=== PATIENT | male | born 1930 | race Caucasian/White ===

== ENCOUNTER 2017-04-25 11:21 | Inpatient (IN) | payer OTHER ==
[~2017-04-25] VITALS: Ht 170.2 cm; Wt 72.7 kg
[2017-04-25] MEDS ORDERED: LISINOPRIL2.5 M1 PO (11:42)
[2017-04-25] MEDS ORDERED: SIMVASTATIN40 M1 PO (11:43)
[2017-04-25] MEDS ORDERED: METFORMIN HCL500 M3 PO (11:43)
--- NOTE | 2017-04-25 11:57 | ED GENERAL ADULT ---
History of Present Illness General Chief Complaint: General Adult Stated Complaint: BIBA WITH ABDOMNAIL PAIN Source: patient Exam Limitations: no limitations Allergies Uncoded Allergies: Allergy Other N Med Allergies N Reconcile Medications Lisinopril 2.5 MG TABLET 2.5 MG PO DAILY HYPERTENSION (Reported) Metformin HCl 500 MG TABLET 500 MG PO BID DIABETES (Reported) Simvastatin (Simvastatin*) 40 MG TABLET 40 MG PO DAILY CHOLESTEROL (Reported) Triage Note: C/O EPIGASTRIC PAIN THAT RADIATED TO HIS BACK LAST NIGHT THAT NEVER IMPROVED. HAD NEAR SYNCOPAL EPISODE AT HOME IN WHICH HE FELL SUSTAINING AN ABRAISION TO HIS LEFT ARM. DENIES HITTING HIS HEAD ANY LOC. NO ASA OR BLOOD THINNERS TAKEN. DENIES PAIN ON ARRIVAL. STATES SHE WOULD LIKE TO GET A CXR B/C SHE THINKS HE MAY HAVE PNEUMONIA D/T CONTINUOUS COUGH. NO COUGH NOTED ON ARRIVAL. NAD Triage Nurses Notes Reviewed? yes Onset: Gradual Duration: day(s): (2) Timing: recent history Injury Environment: home Severity: moderate No Modifying Factors: none HPI: Patient is an 86-year-old male with history of diabetes, chronic chest pain syndrome, aortic stenosis and hyperlipidemia presenting to the emergency department with chief complaint of fall this morning. Patient presented is walking and slipped on a wet floor and his was unable to get him up. Patient does report that he hit the back of his head. No LOC. Denies blood per use. Patient also reports that over the past 2 days he's been having an intermittently productive cough of yellow sputum with centralized chest tightness. Patient reports that at the time the chest pain did radiate to the back. Chest pain lasted a few hours last night and then returned again this morning for "a little while". Denies any current chest pain or back pain. Denies any upper extremity or lower extremity pain. Denies any palpitations shortness of breath fevers or chills. No recent travel or sick contacts. Denies taking anything at home to help with coughing. denies any syncopal event. Denies any lightheadedness or feeling weak prior to slipping on the floor and following. They called their airplane pilot this morning who is supposed to see him this afternoon and arrange for a chest x-ray to be done prior to the appointment but they did not want to wait until this afternoon inserted they decided come into the emergencY for evaluation. (BRIDGER FLORES) Vital Signs & Intake/Output Vital Signs & Intake/Output Vital Signs Date Time Temp Pulse Resp B/P B/P Pulse O2 O2 Flow FiO2 Mean Ox Delivery Rate 04/25 1415 82 104/65 04/25 1329 81 18 109/61 94 Room Air 04/25 1304 94 Room Air 04/25 1254 94 04/25 1140 99.2 83 20 105/67 93 Room Air Past History Travel History Traveled to [place] past 21 day No Medical History Any Pertinent Medical History? see below for history Neurological: NONE EENT: NONE Cardiovascular: CHF, hypertension, CHOLESTEROL Endocrine: diabetes Surgical History Surgical History: non-contributory Psychosocial History What is your primary language Vincentian Tobacco Use: Never used Family History Hx Contributory? No (BRIDGER FLORES) Review of Systems Review of Systems Constitutional: Reports: no symptoms. Comments Review of systems: See HPI, All other systems negative. Constitutional, no chills fever or weight loss HEENT: No visual changes no sore throat Cardiovascular: No palpitation , orthopnea or ankle swelling Skin, no jaundice no rashes Respiratory: No dyspnea OR hemoptysis GI: No nausea no vomiting : No dysuria No hematuria Muscle skeletal: no neck pain, Neurologic: No numbness no confusion, no headache Psych: No stress anxiety or depression,. Heme/endocrine: No bruising no bleeding no polyuria or polydipsia Immunology: No splenectomy or history of AIDS (BRIDGER FLORES) Physical Exam Physical Exam General Appearance: well developed/nourished, no apparent distress, alert, awake , comfortable Comments: Well-developed well-nourished person in no acute distress HEENT: Strabismus noted. Extraocular motion intact, no nystagmus. Pupils equally round and reactive to light and accommodation. Nose is atraumatic. External auditory canal and Tympanic membranes clear. Pharynx normal. No swelling or edema. Neck: Supple, no lymphadenopathy, normal range of motion without pain or tenderness Back: Nontender, no CVA tenderness. Full range of motion Cardiovascular: Regular rate and rhythms, normal JVP. Positive murmur to auscultation consistent with aortic stenosis. Respiratory: Chest nontender. No respiratory distress.breath sounds clear to auscultation bilaterally Abdomen: Soft, nontender nondistended, no appreciable organomegaly. Normal bowel sounds. No ascites, no rebound or guarding. Rectal: Nontender, no external hemorrhoids, brown stool guaiac-negative. Extremity: No edema, no calf tenderness to palpation, normal and equal pulses. Able to perform straight leg raise bilaterally. No pain to palpation over bilateral hips, femurs or lower aspect of the lower extremities. Full range of motion of bilateral ankles and feet. No ecchymosis or signs of trauma noted on the lower extremities. Full range of motion of left upper extremity, no pain to palpation over the lateral or medial epicondyle and the left upper extremity. 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 No ecchymosis erythema or edema noted. No pain to palpation over bilateral shoulders. Muscular strength is 5 out of 5 in lower extremities and left upper extremity. Neuro: Alert oriented x3, motor sensory normal, cranial nerves II through XII grossly intact. Cerebellar testing is unremarkable. Skin: No appreciable rash on exposed skin, skin is warm and dry. Patient does have several dry plaque-like lesions noted on his face, slightly hyperpigmented. Ranging from 2 mm to 1 cm. Psych: Mood and affect is normal, memory and judgment is normal. Core Measures ACS in differential dx? Yes CVA/TIA Diagnosis: No Severe Sepsis Present: No Septic Shock Present: No (DANIEL SANCHEZ,BRIDGER) Progress Differential Diagnoses I considered the following diagnoses in my evaluation of the patient: Mechanical fall, minor head injury, intracranial hemorrhage, near syncope, ACS, electrolyte abnormality, cardiac arrhythmia, cardiac ischemia Diagnostic Imaging: Viewed by Me: Radiology Read, CT Scan. Discussed w/RAD: Radiology Read, CT Scan. Radiology Impression: PATIENT: COREY MCGARRY PRESENT AGE: 86 PATIENT ACCOUNT NO: [id number] : 30 LOCATION: [facility] ORDERING PHYSICIAN: BRIDGER SANCHEZ SERVICE DATE: 04/25/17 EXAM TYPE: RAD - XRY-CHEST XRAY, PA AND LATERAL EXAMINATION: XR CHEST CLINICAL INFORMATION: Chest pain. COMPARISON: None TECHNIQUE: 2 views of the chest were obtained. FINDINGS: Low lung volumes. Minimal bibasilar atelectasis. No pleural effusion or edema. No pneumothorax. The cardiomediastinal silhouette is within normal limits of size for this technique. Aortic calcifications noted. Severe degenerative changes at the left glenohumeral joint. IMPRESSION: Hypoexpanded lungs with bibasilar atelectasis. The cardiac silhouette is normal in size for this technique. DICTATED BY: DONNELL BROWN MD Initial ED EK SINUS RHYTHM, ST DEPRESSION AND NEGATIVE T WAVES Comments: On arrival patient distress, not currently reporting any chest pain. Neurologically intact. No reproducible pain on exam. Patient does not take any aspirin daily. Non-any anticoagulation. EKG does show ST depressions. Unable to obtain previous EKG at this time. We will contact patient's airplane pilot. 04/25/2017 1:26:55 PM family updated on all labs and positive troponin as well as imaging results. Patient family were informed that he likely had a heart attack. Page spelled out to cardiology. Patient will be admitted. Given 4 baby aspirin. Pending auscultation with airplane pilot to see if he would like to heparinize this patient. Patient also given metoprolol to help lower heart rate. (DANIEL SANCHEZ,BRIDGER) Plan of Care: Orders Procedure Date/time Status PARTIAL THROMBOPLASTIN TIME 04/25 2020 Active Patient Data 04/25 1523 Active Add-on Test (ER Only) 04/25 1321 Active B-TYPE NATRIURETIC PEP (BNP) 04/25 1226 Complete MISTAKE 04/25 1158 Active Telemetry/Assistant Restaurant General Manager 04/25 1158 Active URINALYSIS 04/25 1158 Active TROPONIN LEVEL 04/25 1158 Complete PARTIAL THROMBOPLASTIN TIME 04/25 1158 Complete PROTHROMBIN TIME 04/25 1158 Complete LIPASE 04/25 1158 Complete COMPREHENSIVE METABOLIC PANEL 04/25 1158 Complete CBC WITHOUT DIFFERENTIAL 04/25 1158 Complete EKG 04/25 1158 Active Current Medications Sig/Max Start time Last Medication Dose Stop Time Status Admin Heparin Sodium 25,000 UNIT Q24H 04/25 1400 UNVr 04/25 (Porcine) 1421 (Heparin) Sodium Chloride 500 ML Laboratory Tests 04/25/17 1226: Anion Gap 11, Estimated GFR 57 L, BUN/Creatinine Ratio 21.7, Glucose 121 H, Calcium 9.3, Total Bilirubin 1.0, AST 72 H, ALT 25, Alkaline Phosphatase 57, Troponin I 13.60 *H, Znd-Q-Jqyoxbhmjpy Pept 68104 H, Total Protein 6.7, Albumin 4.1, Globulin 2.6, Albumin/Globulin Ratio 1.6, Lipase 72, PT 12.2, INR 1.16, APTT 33, CBC w Diff NO MAN DIFF REQ, RBC 4.58 L, MCV 86.4, MCH 29.4, RDW 14.5, MPV 7.6, Gran % 91.6 H, Lymphocytes % 3.9 L, Monocytes % 4.4, Eosinophils % 0.1, Basophils % 0 L, Absolute Granulocytes 8.6 H, Absolute Lymphocytes 0.4 L , Absolute Monocytes 0.4, Absolute Eosinophils 0, Absolute Basophils 0, PUBS MCHC 34.0 Comments: D/W DR DUPONT WHO RECOMMENDS HEPARIN AND ADMISSION. Patient has known severe/ critical aortic stenosis but has declined surgery for years. 04/25/2017 2:29:25 PM patient's case discussed with Dr. Boyce who felt the patient should be admitted to the intensive care unit to the intensivists service. I attempted to contact Dr. Dave to see if he felt ICU admission was appropriate. In the meantime Dr. Boyce did speak with Dr. Dave and it was felt appropriate for ICU admission. I've discussed the patient's case with Dr. Shell who feels that given that this is an isolated cardiac issue that Dr. Dave should take the admission. (JAROCHO PICKERING,MICHAEL Najera) Departure Departure Time of Disposition: 1353 Condition: Stable Referrals: URIEL PICKERING,ROBINSON Montoya (PCP/Family) Departure Forms: Customer Survey General Discharge Information Admission Note Spoke With: DAGOBERTO PICKERING,PEÑA Montoya (BRIDGER FLORES) Departure Disposition: STILL A PATIENT Clinical Impression Primary Impression: Acute coronary syndrome Admission Note Documentation of Exam: Documentation of any treatments & extenuating circumstances including Concerns Regarding Discharge (functional status, medication knowledge or non-compliance, living conditions, etc.) that warrant an admission rather than observation: Patient presents after an episode of chest pain yesterday with an elevated troponin and a history of critical aortic stenosis. This places the patient at high risk of worsening cardiac function, congestive heart failure, dysrhythmias, syncope, hypotension and mortality. He should be hospitalized and placed on a continuous athletic monitor and have serial troponins and EKGs performed. He should be heparinized for the possibility of acute coronary ischemia. Vital signs should be monitored. Cardiology consultation should be obtained and consideration of aortic repair considered. I do not feel this patient is a good candidate for outpatient management as the exertion of outpatient treatment could potentially worsen his acute coronary syndrome. In addition he should have continuous cardiac monitoring for the possibility of associated dysrhythmia. Given his advanced age and medical comorbidities I feel his treatment will be prolonged and complicated. He will require a multiple day hospitalization. PA/REGISTRATION SCHEDULING SPECIALIST Co-Sign Statement Statement: ED Attending supervision documentation- [X] I saw and evaluated the patient. I have also reviewed all the pertinent lab results and diagnostic results. I agree with the findings and the plan of care as documented in the PA's/REGISTRATION SCHEDULING SPECIALIST's documentation. [] I have reviewed the ED Record and agree with the PA's/REGISTRATION SCHEDULING SPECIALIST's documentation. [] Additions or exceptions (if any) to the PAs/REGISTRATION SCHEDULING SPECIALIST's note and plan are summarized below: [] (JAROCHO PICKERING,MICHAEL Najera) Critical Care Note Critical Care Note Critical Care Time: 30-74 min (BRIDGER FLORES)
[2017-04-25 12:33] LABS: ABSOLUTE BASOPHIL COUNT 0 /CUMM (0.0-0.2); ABSOLUTE EOSINOPHIL COUNT 0 /CUMM (0.0-0.7); ABSOLUTE GRANULOCYTE CT 8.6 /CUMM (1.4-6.5); ABSOLUTE LYMPH COUNT 0.4 /CUMM (1.2-3.4); ABSOLUTE MONOCYTE COUNT 0.4 /CUMM (0.10-0.60); BASOPHIL % 0 % (0.0-2.0); EOSINOPHIL % 0.1 % (0-5); HEMATOCRIT 39.5 % (42-52); MEAN CORPUSCULAR HGB 29.4 PG (27.0-31.0); MEAN CORPUSCULAR VOLUME 86.4 FL (80.0-94.0); MEAN PLATELET VOLUME 7.6 FL (7.4-10.4); PLATELET COUNT 252 /CUMM (130-400); RBC DISTRIBUTION WIDTH 14.5 % (11.5-14.5); RED BLOOD CELL CT 4.58 /CUMM (4.70-6.10); WHITE BLOOD CELL COUNT 9.4 /CUMM (4.8-10.8)
--- NOTE | 2017-04-25 12:34 | RADIOLOGY REPORT ---
EXAMINATION: XR CHEST CLINICAL INFORMATION: Chest pain. COMPARISON: None TECHNIQUE: 2 views of the chest were obtained. FINDINGS: Low lung volumes. Minimal bibasilar atelectasis. No pleural effusion or edema. No pneumothorax. The cardiomediastinal silhouette is within normal limits of size for this technique. Aortic calcifications noted. Severe degenerative changes at the left glenohumeral joint. IMPRESSION: Hypoexpanded lungs with bibasilar atelectasis. The cardiac silhouette is normal in size for this technique.
[2017-04-25 13:00] LABS: GRANULOCYTE % 91.6 % (42.2-75.2)
[2017-04-25 13:04] LABS: PT 12.2 SEC (9.4-12.5); PTT 33 SEC (25-37)
--- NOTE | 2017-04-25 13:15 | CT SCAN REPORT ---
EXAMINATION: CT HEAD WITHOUT CONTRAST CLINICAL INFORMATION: Head strike. Evaluate for acute intracranial hemorrhage. COMPARISON: No relevant prior imaging. TECHNIQUE: Contiguous axial imaging was performed from the skull base to vertex without intravenous administration of contrast. DLP: 631.5 mGy-cm FINDINGS: There is no acute intracranial hemorrhage or abnormal extra axial collection. No intracranial mass effect or midline shift. Lateral and third ventricles are proportionate to the subarachnoid spaces. No hydrocephalus. Marquez-white matter differentiation is grossly preserved and there is no evidence of acute territorial infarct. The calvarium and skull base are intact. Mastoid air cells and middle ear cavities are well aerated. Visualized paranasal sinuses are well aerated. IMPRESSION: Unremarkable CT scan of the head. No evidence of acute intracranial hemorrhage.
--- NOTE | 2017-04-25 16:58 | History & Physical ---
See Addendum General Information and HPI Source of Information: patient, family Exam Limitations: no limitations History of Present Illness: He is 86-year-old man with past medical history of aortic stenosis, hypertension , hyperlipidemia, type 2 diabetes presented to ER with complaint of epigastric pain and nausea starting yesterday. According to patient he had same pain day before yesterday but it lasted only for an hour. Yesterday lasted for almost all day. Epigastric pain was continuous, sharp, radiating to back. Also reports dizzy and lightheaded. He denies any chest pain, palpitations, SOB, Orthopnea, PND and diaphoresis. No vomiting, diarrhea or constipation. No urinary changes. This morning when he went to bathroom, slipped and fell down. He also hit his head. Patient does not remember fully about his symptoms before fall. He denies losing consciousness, headache, vision changes, weakness or numbness of any part of his body. According to he is baseline wobbly but does not use any assistance for walking. also reports that patient has poor appetite and has lost weight progressively. Per patient was also coughing yesterday and complaining of sore throat. Denies any fever or chills. Cough is nonproductive. Patient lives with his . Has 2 daughters. Nonsmoker. Denies drinking alcohol or use of illicit drugs. He is retired. 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 Allergies/Medications Allergies: Uncoded Allergies: Allergy Other N Med Allergies N Home Med list Glipizide (Glipizide ER) 2.5 MG TAB.ER.24 1 TAB PO DAILY DM (Reported) Lisinopril 2.5 MG TABLET 1 TAB PO DAILY HYPERTENSION (Reported) Metformin HCl 500 MG TABLET 500 MG PO BID DIABETES (Reported) Simvastatin (Simvastatin*) 40 MG TABLET 40 MG PO DAILY CHOLESTEROL (Reported) Compliance With Home Meds: GOOD Past History Travel History Traveled to [place] past 21 day No Medical History Neurological: NONE EENT: NONE Cardiovascular: hypertension, hyperlipidemia, Aortic stenosis Endocrine: diabetes Surgical History Surgical History: cataract, 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 Psychosocial History Where do you live? Home Who Do You Live With? 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 Exam & Diagnostic Data Last 24 Hrs of Vital Signs/I&O Vital Signs Date Time Temp Pulse Resp B/P B/P Pulse O2 O2 Flow FiO2 Mean Ox Delivery Rate 04/25 1415 82 104/65 04/25 1329 81 18 109/61 94 Room Air 04/25 1304 94 Room Air 04/25 1254 94 04/25 1140 99.2 83 20 105/67 93 Room Air Intake & Output 04/25 1600 04/25 0800 04/25 0000 Intake Total Output Total Balance Patient 160 lb Weight Weight Estimated Measurement Method Physical Exam General Appearance Alert, Oriented X3, Cooperative, No Acute Distress Skin small abrasion on left elbow HEENT dry mucous membranes Neck No JVD Cardiovascular Regular Rate, systolic murmur Lungs Clear to Auscultation Abdomen Normal Bowel Sounds, Soft, No Tenderness Neurological Strength at 5/5 X4 Ext, Sensation Intact Extremities No Edema, amputated right arm Last 24 Hrs of Labs/Ed: Laboratory Tests 04/25/17 1226: Anion Gap 11, Estimated GFR 57 L, BUN/Creatinine Ratio 21.7, Glucose 121 H, Calcium 9.3, Total Bilirubin 1.0, AST 72 H, ALT 25, Alkaline Phosphatase 57, Troponin I 13.60 *H, Xke-I-Oskzqsrjedy Pept 76972 H, Total Protein 6.7, Albumin 4.1, Globulin 2.6, Albumin/Globulin Ratio 1.6, Lipase 72, PT 12.2, INR 1.16, APTT 33, CBC w Diff NO MAN DIFF REQ, RBC 4.58 L, MCV 86.4, MCH 29.4, RDW 14.5, MPV 7.6, Gran % 91.6 H, Lymphocytes % 3.9 L, Monocytes % 4.4, Eosinophils % 0.1, Basophils % 0 L, Absolute Granulocytes 8.6 H, Absolute Lymphocytes 0.4 L , Absolute Monocytes 0.4, Absolute Eosinophils 0, Absolute Basophils 0, PUBS MCHC 34.0 Diagnostic Data EKG Results NSR T wave inversions in almost all leads No ST elevations LVH No previous EKG to compare CXR Results Hypoexpanded lungs with bibasilar atelectasis. Other Results Head CT: No evidence of acute intracranial hemorrhage. Assessment/Plan Assessment: He is 86-year-old man with past medical history of aortic stenosis, hypertension , hyperlipidemia, type 2 diabetes. ED course: Upon arrival to ED his temperature was 99.2, pulse 83, respiratory rate 20, blood pressure 105/67 and oxygen saturation 93% on room air. Labs including CBC and BP unremarkable. Troponins 13.60, proBNP 69576. In ER he was given nebulization treatment, metoprolol 12.5 mg by mouth 1 and he was started on heparin drip after giving bolus. Patient is going to be admitted in ICU for possible NSTEMI. LOUIE score is 5. PLAN * Close ICU monitoring * Watch for arrhythmias * Continue IV heparin drip * Serial EKGs and troponins * Echocardiogram * We'll start patient on aspirin * Continue statin * Holding his home medications including metformin, glipizide and lisinopril * Accu-Cheks before each meal and at bedtime * NovoLog insulin sliding scale * We'll keep patient nothing by mouth after midnight tonight for possible cardiac cath tomorrow * Will follow further cardiac recommendations * Mild pain pathway * Heart healthy diet * DVT prophylaxis * Full code As Ranked By This Provider Problem List: 1. NSTEMI (non-ST elevated myocardial infarction) Core Measures/Miscellaneous Acute Coronary Syndrome ACS Diagnosis: Yes ASA W/I 24hr of admit Yes Beta-Kendra W/I 24hrs Yes Currently on Statin Yes Cerebrovascular Accident CVA/TIA Diagnosis: No Congestive Heart Failure CHF Diagnosis: No VTE (View Protocol) VTE Risk Factors: Acute medical illness, Age > 40 No [facility] VTE prophylaxis d/t: No contraindications No VTE Pharm Prophylaxis d/t: No contraindications VTE Diagnosis: No VTE Type: NONE VTE Confirmed by (Test): NONE Sepsis (View Protocol) Severe Sepsis Present: No Septic Shock Septic Shock Present: No Miscellaneous Documentation Attending Case Discussed With: Dr. Ramires Primary Care Physician: URIEL PICKERING,ROBINSON Montoya Patient sees these Specialists Dr. Deyvi Nuñez Level of Patient Care: Critical Care (CRI) Consults Needed: Consulting Specialty: Cardiology
[2017-04-25] MEDS ORDERED: GLIPIZIDE ER2.5 M1 PO (17:01)
[2017-04-25 18:00] VITALS: BP 102/60
[2017-04-25 20:55] LABS: PTT 83 SEC (25-37)
[2017-04-26] VITALS: BP 108/60
[2017-04-26 02:56] LABS: ABSOLUTE BASOPHIL COUNT 0 /CUMM (0.0-0.2); ABSOLUTE EOSINOPHIL COUNT 0.1 /CUMM (0.0-0.7); ABSOLUTE GRANULOCYTE CT 4.1 /CUMM (1.4-6.5); ABSOLUTE LYMPH COUNT 0.7 /CUMM (1.2-3.4); ABSOLUTE MONOCYTE COUNT 0.6 /CUMM (0.10-0.60); BASOPHIL % 0.5 % (0.0-2.0); EOSINOPHIL % 1.2 % (0-5); GRANULOCYTE % 74.9 % (42.2-75.2); MEAN CORPUSCULAR HGB 29.5 PG (27.0-31.0); MEAN CORPUSCULAR HGB CONC 33.9 G/DL (33.0-37.0); PLATELET COUNT 214 /CUMM (130-400); RBC DISTRIBUTION WIDTH 14.4 % (11.5-14.5); RED BLOOD CELL CT 3.95 /CUMM (4.70-6.10); WHITE BLOOD CELL COUNT 5.5 /CUMM (4.8-10.8)
[2017-04-26 02:57] LABS: HEMATOCRIT 34.4 % (42-52)
--- NOTE | 2017-04-26 07:18 | PN- Resident CRCU ---
Subjective HPI/CRCU Issues: I saw the pt today at bed side,he was lying flat on bed. He says, he is comfortable at rest, denies chest pain, palpitations, dyspnea, orthopnea , headache. He slept well and anxious about the cath procedure. Objective Vital Signs & I&O Last 8 Hrs of Vitals and I&O: Vital Signs Date Time Temp Pulse Resp B/P B/P Pulse O2 O2 Flow FiO2 Mean Ox Delivery Rate 04/26 0800 97 Nasal 2.0L Cannula 04/26 0800 97.8 52 18 108/70 97 Nasal 2.0L Cannula 04/26 0400 98 Nasal 2.0L Cannula 04/26 0000 97 Nasal 2.0L Cannula 04/26 0000 96.0 53 22 108/60 97 Nasal 2.0L Cannula 04/25 1800 98.0 58 20 102/60 96 Room Air 04/25 1745 60 18 100/54 98 Room Air 04/25 1415 82 104/65 04/25 1329 81 18 109/61 94 Room Air 04/25 1304 94 Room Air 04/25 1254 94 Exam General Appearance: well developed/nourished, no apparent distress, alert, awake , anxious, thin, rt below elbow amputation +. Head: normal appearance Neck: normal inspection, supple, full range of motion Respiratory: normal breath sounds, chest non-tender, no respiratory distress, quiet respiration Cardiovascular: regular rate/rhythm Gastrointestinal: normal bowel sounds, soft Extremities: normal inspection Skin: intact, normal color Back: normal inspection Nutrition Nutrition: NPO Current Medications: Current Medications Sig/Max Start time Last Medication Dose Route Stop Time Status Admin Acetaminophen 650 MG Q6P PRN 04/25 1700 AC PO Aspirin 81 MG DAILY 04/26 1000 AC 04/26 PO 0934 Aspirin 0 .STK-MED ONE 04/25 1324 DC PO Atorvastatin Calcium 40 MG 1700 04/26 1700 AC PO Dextrose/Sodium 1,000 ML Q20H 04/26 0600 AC 04/26 Chloride IV 04/27 0159 0619 Heparin Sodium 0 .STK-MED ONE 04/25 1414 DC (Porcine) .ROUTE Heparin Sodium 4,000 UNIT ONCE ONE 04/25 1400 DC 04/25 (Porcine) IV 04/25 1401 1420 Heparin Sodium 25,000 UNIT Q24H 04/25 1400 AC 04/25 (Porcine) IV 1421 Sodium Chloride 500 ML Insulin Aspart 0 TIDAC 04/26 0800 CAN SC Insulin Human Regular 0 Q6 04/26 0600 AC SC Metoprolol Tartrate 0 .STK-MED ONE 04/25 1414 DC PO Metoprolol Tartrate 12.5 MG ONCE ONE 04/25 1330 DC 04/25 PO 04/25 1331 1415 Multivitamins 1 TAB DAILY 04/26 1000 AC 04/26 PO 0934 Sodium Chloride 500 ML BOLUS ONE 04/25 2200 DC 04/26 IV 04/25 2259 0043 CXR Findings: Hypoexpanded lungs with bibasilar atelectasis. The cardiac silhouette is normal in size for this technique. CT Scan Findings: CT HEAD 04/25/[address] scan of the head. No evidence of acute intracranial hemorrhage. ECHO Findings: 04/26/17 Technically difficult study. Definity contrast given. Left ventricular cavity size normal. Left ventricular wall thickness mildly increased. No obvious regional wall motion abnormalities. Left ventricular ejection fraction is estimated at > 55 %. Right ventricle not well visualized, grossly normal. Mild left atrial dilatation. Mitral valve not well visualized. Probably moderate mitral stenosis. Aortic valve not well visualized. Critical aortic stenosis (mean gradient 84 mmHg, KYA 0.36 cm2 by continuity). Unable to estimate the right ventricular systolic pressure. Impression/Plan Impression/Problem List Impression: He is 86-year-old man with past medical history of aortic stenosis, hypertension , hyperlipidemia, type 2 diabetes, came with h/o fall and chest pain with T wave inversion admitted in ICU for close monitoring yesterday. Pt planned for cath today at [facility]. Plan: NSTEMI * NPO * ON HEPARIN, ASPIRIN ,STATIN * AVoid b blockers. * echo * cardiology f/u * his glycemic meds with held * novolog and accu checks. Problem List: 1. NSTEMI (non-ST elevated myocardial infarction) Pain Ratin Tomorrow's Labs & Rationales: none Plan DVT/Prophylaxis: heparin, alps Code Status: Full Code
[2017-04-26 08:00] VITALS: BP 108/70
--- NOTE | 2017-04-26 08:52 | Discharge Summary ---
Visit Information Visit Dates Admission Date: 04/25/17 Discharge Date: 04/26/17 Hospital Course Course Attending Physician: DAGOBERTO PICKERING,PEÑA Montoya Primary Care Physician: URIEL PICKERING,ROBINSON Montoya Consulting Request: Consulting Specialty: Cardiology Hospital Course: 86-year-old man past medical history of aortic stenosis, hypertension, hyperlipidemia, and sjt-kmeskwk-vdvxlqsem diabetes mellitus seen for evaluation of epigastric pain with associated nausea. Epigastric pain was described as sharp, continuous, radiating to the back with associated dizziness/lightheadedness without any specific chest pain, palpitations, shortness breath, or diaphoresis. Review of systems was otherwise negative upon initial evaluation. Patient admits to a similar episode occurring the day prior that resolved after an hour. Morning of admission patient admits to sustaining an unwitnessed mechanical fall where he slipped and fell down during ambulation to the bathroom, he does not recall this event details of the event. He does however denied losing consciousness, vision changes, or bowel/bladder incontinence. ED course: -Vitals: Temp 99.2, HR 81-83, RR 18-20, BP 104-109/61-67, O2 93-94% on room air -Significant labs: WBC 9.4, Hgb/HCT 13.5/39.5, PLT 252, serum chemistries WNL, BUN/creatinine 26/1.2, AST/ALT 72/25, troponin 13.60, BNP 14,200 INR 1.16 -Studies: * Chest w-qjb-xtykxkrfozgf lungs with bibasilar atelectasis * CT head without IV contrast-no acute intracranial pathology/hemorrhage * EKG-NSR with T-wave inversions and ST depression in V3-V6, LVH, unchanged from previous -Interventions: * Heparin GGT * Metoprolol 12.5mg * ASA 324mg * Atorvastatin 40mg Problem list: -NSTEMI -History of aortic stenosis -Hypertension -Hyperlipidemia -Qtc-pasgztw-vqpugqvxz diabetes mellitus Hospital Course: Given patient's history of present illness and elevated troponin with EKG changes suggestive of myocardial ischemia patient was continued on heparin drip and admitted to the ICU for further evaluation and cardiology consultation. Troponin/EKG were trended for 3 sets (13.60, 27.90, 19.70) EKG demonstrating a new changes. She was seen and examined by director of reimbursement Guero Ramires MD whom felt patient would benefit from cardiac catheterization. She is to be transferred to [facility] under the care of Dr. Valerio for further evaluation. Patient was continued on aspirin, heparin ggt, and atorvastatin upon transfer. Allergies: Uncoded Allergies: Allergy Other N Med Allergies N Significant Procedures: SERVICE DATE: 04/25/17 EXAM TYPE: RAD - XRY-CHEST XRAY, PA AND LATERAL IMPRESSION: Hypoexpanded lungs with bibasilar atelectasis. The cardiac silhouette is normal in size for this technique. SERVICE DATE: 04/25/17 EXAM TYPE: CAT - CT HEAD WO IV CONTRAST IMPRESSION: Unremarkable CT scan of the head. No evidence of acute intracranial hemorrhage. Disposition Summary Disposition Principal Diagnosis: NSTEMI Severe aortic stenosis Additional Diagnosis: As above Discharge Disposition: other general hospital Discharge Instructions General Discharge Information Code Status: Full Code Patient's Diet: NPO for procedure Patient's Activity: Best rest until reassessed Follow-Up Instructions/Appts: Transfer to [facility] Medications at Discharge Discharge Medications: Continue taking these medications: Lisinopril (Lisinopril) 2.5 MG TABLET 1 Tablet ORAL DAILY Qty = 30 Metformin HCl (Metformin HCl) 500 MG TABLET 500 Milligram ORAL TWICE DAILY Qty = 180 Simvastatin (Simvastatin*) 40 MG TABLET 40 Milligram ORAL DAILY Qty = 90 Glipizide (Glipizide ER) 2.5 MG TAB.ER.24 1 Tablet ORAL DAILY Start taking the following new medications: Aspirin (Aspirin*) 81 MG TAB.CHEW 81 Milligram ORAL DAILY Qty = 30 No Refills Heparin (Heparin-1/2NS 25,000 Units/500) 25,000 UNIT/500 ML (50 UNIT/ML) IV.SOLN 1 Bag INTRAVEN DAILY Qty = 1 No Refills Copies To: URIEL PICKERING,ROBINSON Montoya; DAGOBERTO PICKERING,PEÑA Montoya Attending MD Review Statement Documenting Attending: MARIANO PICKERING,GUERO
[2017-04-26] MEDS ORDERED: ASPIRIN81 M4 PO (09:26)
[2017-04-26] MEDS ORDERED: HEPARIN-1/25000 UNI1 IV (09:26)
--- NOTE | 2017-04-26 09:27 | Patient Discharge Instructions ---
Discharge Instructions General Discharge Information Special Instructions: Follow up with your instrument mechanic weapons system after discharge. Acute Coronary Syndrome Inclusion Criteria At DC or during hospital stay patient has or had the following: ACS DIAGNOSIS Yes Discharge Core Measures Meds if any: Prescribed or Continued at Discharge ZAKI/ARB if EF <40% No Aspirin Yes Beta-Kendra Yes Statin Yes Meds if any: NOT Prescribed or Continued at Discharge Congestive Heart Failure Inclusion Criteria At DC or during hospital stay patient has or had the following: CHF DIAGNOSIS No Discharge Core Measures Meds if any: Prescribed or Continued at Discharge Meds if any: NOT Prescribed or Continued at Discharge Cerebrovascular accident Inclusion Criteria At DC or during hospital stay patient has or had the following: CVA/TIA Diagnosis No Discharge Core Measures Meds if any: Prescribed or Continued at Discharge Meds if any: NOT Prescribed or Continued at Discharge Venous thromboembolism Inclusion Criteria VTE Diagnosis No VTE Type NONE VTE Confirmed by (Test) NONE Discharge Core Measures - Per Current guidelines, there needs to be overlap - treatment for the first 5 days of Warfarin therapy. - If discharged on Warfarin prior to 5 days of - overlap therapy, the patient will need to be - assessed for post discharge needs including - *Post discharge parental anticoagulation - *Warfarin and/or parental anticoagulation education - *Follow up date to check INR post discharge At least 5 days overlap therapy as Inpatient No Meds if any: Prescribed or Continued at Discharge Note: Overlap Therapy is Warfarin and Anticoagulant Meds if any: NOT Prescribed or Continued at Discharge
[2017-04-26 10:05] LABS: PTT > 120 SEC (25-37)
--- NOTE | 2017-04-26 10:57 | ECHOCARDIOGRAM REPORT ---
COREY MCGARRY Age: 86 : 1930 Gender: M Exam Date: 04/25/2017 18:45 Exam Location: [facility] Ht (in): 66 Wt (lb): 160 BSA: 1.85 BP: 100 / 54 Ordering Physician: MEDHAT STARKEY MD Referring Physician: Guero Ramires M.D. Technologist: Donna Castillo RDCS Room Number: 102 Indications: VALVULAR DISEASE Rhythm: Technical Quality: Technically difficult study FINDINGS Left Ventricle Left ventricular cavity size normal. Left ventricular wall thickness mildly increased. No obvious regional wall motion abnormalities. Left ventricular ejection fraction is estimated at > 55 %. Right Ventricle Right ventricle not well visualized, grossly normal. Right Atrium Normal right atrial size. Left Atrium Mild left atrial dilatation. Mitral Valve Mitral valve not well visualized. Probably moderate mitral stenosis. Mild mitral regurgitation. Aortic Valve Aortic valve not well visualized. Critical aortic stenosis (mean gradient 84 mmHg, KYA 0.36 cm2 by continuity). Tricuspid Valve Tricuspid valve not well visualized, grossly normal. Trace tricuspid regurgitation. Unable to estimate the right ventricular systolic pressure. Pulmonic Valve Pulmonic valve not well visualized. Pericardium No pericardial effusion. Great Vessels Normal size aortic root. CONCLUSIONS Technically difficult study. Definity contrast given. Left ventricular cavity size normal. Left ventricular wall thickness mildly increased. No obvious regional wall motion abnormalities. Left ventricular ejection fraction is estimated at > 55 %. Right ventricle not well visualized, grossly normal. Mild left atrial dilatation. Mitral valve not well visualized. Probably moderate mitral stenosis. Aortic valve not well visualized. Critical aortic stenosis (mean gradient 84 mmHg, KYA 0.36 cm2 by continuity). Unable to estimate the right ventricular systolic pressure. Guero Ramires M.D. (Electronically Signed) Final Date: 26 April 2017 10:57 MEASUREMENTS (Male / Female) Normal Values 2D ECHO LV Diastolic Diameter PLAX 5.5 cm 4.2 - 5.9 / 3.9 - 5.3 cm LV Systolic Diameter PLAX 3.7 cm 2.1 - 4.0 cm LV Fractional Shortening PLAX 32.7 % 25 - 46 % LV Ejection Fraction 2D Teich 60.6 % IVS Diastolic Thickness 1.2 cm LVPW Diastolic Thickness 1.2 cm LV Relative Wall Thickness 0.4 RV Internal Dim ED PLAX 3.1 cm 1.9 - 3.8 cm LVOT Diameter 1.8 cm Aortic Root Diameter 3.1 cm LA Systolic Diameter LX 5.2 cm 3.0 - 4.0 / 2.7 - 3.8 cm LA Volume 49.0 cm 18 - 58 / 22 - 52 cm DOPPLER AV Peak Velocity 560.0 cm/s AV Peak Gradient 125.4 mmHg AV Mean Velocity 442.0 cm/s AV Mean Gradient 84.0 mmHg AV Velocity Time Integral 161.0 cm LVOT Peak Velocity 79.0 cm/s LVOT Peak Gradient 2.5 mmHg LVOT Mean Velocity 59.3 cm/s LVOT Mean Gradient 2.0 mmHg LVOT Velocity Time Integral 25.8 cm LVOT Stroke Volume 65.7 cm AV Area Cont Eq vti 0.4 cm AV Area Cont Eq pk 0.4 cm MV Peak Velocity 156.0 cm/s MV Peak Gradient 9.7 mmHg MV Mean Velocity 72.0 cm/s MV Mean Gradient 3.0 mmHg Mitral E Point Velocity 106.0 cm/s Mitral A Point Velocity 136.0 cm/s Mitral E to A Ratio 0.8 MV PHT Velocity 122.0 cm/s MV Deceleration [place] 293.0 cm/s MV Pressure Half Time 124.9 ms MV Area PHT 1.8 cm MV Deceleration Time 451.0 ms LV E' Lateral Velocity 4.0 cm/s Mitral E to LV E' Lateral Ratio 26.5 LV E' Septal Velocity 3.0 cm/s Mitral E to LV E' Septal Ratio 35.1
--- NOTE | 2017-04-26 11:07 | Admission Certification ---
Admission Certification Certification Statement - As attending physician, I certify that at the time of - admission, based on clinical presentation, severity of - symptoms, need for further diagnostic testing and - therapeutic interventions, and risk of adverse outcomes - without in-hospital treatment, in my clinical assessment, - this patient requires an acute hospital stay for a minimum - of two nights or longer. I have also considered psychsocial - factors such as support system, advanced age, financial - issues, cognitive issues, and failed out-patient treatments, - past re-admission history, safety of patient, and lack of - compliance as applicable. Specific rationale supporting this admission is: NSTEMI, plan for cath, severe , IV Heparin gtt
--- NOTE | 2017-04-26 11:19 | PN- Att Addend ---
Attending Addendum Attending Brief Note I have personally seen and examined this patient. I have personally reviewed all relevant imaging and laboratory data. I have discussed the case with the care team. 1. Non-ST elevation myocardial infarction 2. Critical aortic stenosis 3. Hypertension 4. Hyperlipidemia 5. Diabetes Patient shows evidence of non-ST elevation myocardial infarction with peak troponins at 27.9. Currently hemodynamically stable. Extensive conversation had with the patient and his regarding various risks/benefits/treatment alternatives. At this time they wish to proceed with cardiac catheterization and evaluation for valvular replacement. Echocardiogram shows a grossly normal ejection fraction with critical aortic stenosis and probably moderate mitral stenosis. The patient is currently hemodynamically stable for transfer for cardiac catheterization today. Calin Ramires MD FACC
== END 2017-04-26 12:12 | disposition short-term general hospital (02) | DRG 282 ==
LOC: ERH 11:21 → CRI 15:36 → ERHI 15:36 → CRI 15:36 → ENRESERV 17:18 → ENTRNSPT 17:57 → EDTRNSPTSTS 18:13 → CRI 18:28 → CMPTRNSPT 18:33 → CRI 19:02
PROVIDERS: Internal Medicine; Physician Assistant; ADMIT Nuclear Medicine Nuclear Cardiology
DX: I21.4 Non-ST elevation (NSTEMI) myocardial infarction (principal); E11.9 Type 2 diabetes mellitus without complications; I35.0 Nonrheumatic aortic (valve) stenosis; I10 Essential (primary) hypertension; E78.5 Hyperlipidemia, unspecified; I08.0 Rheumatic disorders of both mitral and aortic valves; Z79.84 Long term (current) use of oral hypoglycemic drugs; R01.1 Cardiac murmur, unspecified
CPT/HCPCS: CCU; 36415; 82436; 93005; 93010; C8929; J1644; J3490; Q9957

== ENCOUNTER 2018-02-24 10:40 | Inpatient (IN) | payer OTHER ==
[~2018-02-24] VITALS: Ht 170.2 cm; Wt 58.3 kg
[~2018-02-24 10:40] MED LIST: ASPIRIN81 M4 PO; GLIPIZIDE ER2.5 M1 PO; HEPARIN-1/25000 UNI1 IV; LISINOPRIL2.5 M1 PO; METFORMIN HCL500 M3 PO; SIMVASTATIN40 M1 PO
[2018-02-24] MEDS ORDERED: CLOPIDOGREL75 M1 PO (11:04)
[2018-02-24] MEDS ORDERED: PRAVASTATIN SOD80 M2 PO (11:04)
[2018-02-24] MEDS ORDERED: VITAMIN D31000 UNI2 PO (11:05)
--- NOTE | 2018-02-24 11:26 | ED GENERAL ADULT ---
History of Present Illness General Chief Complaint: Altered Mental Status Stated Complaint: BIBA HEMATURIA Source: family Exam Limitations: unable to give history, not alert/orientated, clinical condition, confusion, dementia Vital Signs & Intake/Output Vital Signs & Intake/Output Vital Signs Date Time Temp Pulse Resp B/P B/P Pulse O2 O2 Flow FiO2 Mean Ox Delivery Rate 02/24 1458 49 16 174/74 100 Room Air 02/24 1315 98.6 51 16 173/77 96 02/24 1054 96.1 53 16 162/72 95 Room Air Allergies Coded Allergies: No Known Allergies (02/24/18) Reconcile Medications Aspirin (Aspirin*) 81 MG TAB.CHEW 81 MG PO DAILY HEART Cholecalciferol (Vitamin D3) 1,000 UNIT TABLET 1 TAB PO DAILY VITAMIN SUPPORT (Reported) Clopidogrel Bisulfate (Clopidogrel) 75 MG TABLET 1 TAB PO DAILY BLOOD THINNER (Reported) Metformin HCl 500 MG TABLET 500 MG PO BID DIABETES (Reported) Pravastatin Sodium 80 MG TABLET 1 TAB PO DAILY CHOLESTEROL (Reported) Triage Note: 87 Y/O MALE BIBA FROM HOME FOR EVAL OF HEMATURIA, REPORTED BY AIDE AT HOME THIS MORNING. PT ARRIVES ALERT AND ORIENTED X 3, SPEAKING CLEARLY WITH NO DISTRESS NOTED. PT STATES "DID SOMETHING HAPPEN TO ME? I FEEL GOOD". PT DENIES ALL COMPLAINTS. EMS REPORTS AID CHANGED PT THIS AM AND NOTICED BLOOD IN URINE. PT REPORTS URINATING "IN A LITTLE BIT" OVER THE LAST FEW DAYS. DENIES PAIN. DENIES CHANGES IN APPETITE. AWAITING EVAL Triage Nurses Notes Reviewed? yes HPI: The patient is an 87-year-old male with past medical history significant for an CT in April 2017 which was followed by stenting, valve replacement, necessity for PICC line, subsequent sepsis without known source, and a stroke with resulting left-sided hemiparalysis and currently a poor level of function, who is brought in today by his for hematuria. They have a home health aide who noted blood in his briefs this morning. The patient is unable to communicate any concerns himself, making HPI and review of systems Limited. Past History Travel History Traveled to [place] past 21 day No Medical History Any Pertinent Medical History? 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 Hx Contributory? Yes Review of Systems Review of Systems Constitutional: Reports: see HPI. Comments Other than the features mentioned in history of present illness above, a detailed review of systems was not possible secondary to the patient's confusion and dementia Physical Exam Physical Exam General Appearance: no apparent distress Comments: HEENT: Inspection of the head reveals a normocephalic cranium with no signs of trauma. Ophtho: Eyes are held in a closed position, no obvious acute abnormality. The sclera are noninjected, and there is no obvious discharge. Neck: The trachea is midline, there is no obvious asymmetry or mass over the thyroid, and there is no wincing on palpation of the midline cervical spine. Respiratory: The lungs are clear and equal to auscultation bilaterally without wheezes, rales, or rhonchi. The patient exhibits no signs of labored breathing. Cardiac: Regular rhythm and non-tachycardic without appreciable murmurs on auscultation. No obvious JVD. GI: Examination of the abdomen reveals no significant wincing on deep palpation. : Hematuria. Nursing was unable to pass a straight catheter so Cristobal catheterization was required which resulted in a very scant amount of blood, no visible urine. Neuro: Focused neurologic examination was attempted, but secondary to the patient's confusion and dementia, it was extremely limited. Features that were obtainable included baseline left-sided hemiparesis. Behavioral: Altered. Dermatologic: Dermatologic examination reveals no diffuse rashes or exanthems, no petechiae, no ecchymoses, and no other signs of erythema or infection. Core Measures ACS in differential dx? Yes CVA/TIA Diagnosis: Yes Sepsis Present: No Sepsis Focused Exam Completed? Yes Progress Differential Diagnoses I considered the following diagnoses in my evaluation of the patient: Ureterolithiasis, nephrolithiasis, kidney failure with acute tubular necrosis, hemorrhagic cystitis, bladder mass, idiopathic hematuria Plan of Care: Orders Procedure Date/time Status Regular Diet 02/25 B Active EKG 02/24 1555 Active Cristobal, Insertion/Removal/Asses 02/24 112 Active CULTURE,URINE 02/24 112 Active URINALYSIS 02/24 1122 Complete COMPREHENSIVE METABOLIC PANEL 02/24 1122 Complete CBC WITHOUT DIFFERENTIAL 02/24 1122 Complete Laboratory Tests 02/24/18 1133: Anion Gap 11, Estimated GFR 57 L, BUN/Creatinine Ratio 27.5 H, Glucose 96, Calcium 9.7, Total Bilirubin 0.6, AST 35, ALT 41, Alkaline Phosphatase 61, Total Protein 7.0, Albumin 3.9, Globulin 3.1, Albumin/Globulin Ratio 1.3, CBC w Diff NO MAN DIFF REQ, RBC 4.64 L, MCV 85.3, MCH 28.5, MCHC 33.4, RDW 14.7 H, MPV 7.7, Gran % 70.6, Lymphocytes % 15.1 L, Monocytes % 6.9, Eosinophils % 6.7 H, Basophils % 0.7, Absolute Granulocytes 3.7, Absolute Lymphocytes 0.8 L, Absolute Monocytes 0.4, Absolute Eosinophils 0.4, Absolute Basophils 0, Urinalysis LIGHT H, Urine Color BLDY H, Urine Clarity CLDY H, Urine pH 5.5, Ur Specific [place] 1.025, Urine Protein 100 H, Urine Ketones TRACE H, Urine Nitrite POS H, Urine Bilirubin NEG@ICTO, Urine Urobilinogen 0.2, Ur Leukocyte Esterase TRACE H, Ur Microscopic SEDIMENT EXAMINED, Urine RBC PACKD H, Urine WBC 1-3 H, Ur Epithelial Cells RARE, Urine Crystals 1+ UR AC H, Urine Bacteria MOD H, Micro UA Comment MORE INFO: H, Urine Hemoglobin LARGE H, Urine Glucose NEG Microbiology 02/24 1133 URINE ROUT: Urine Culture - RECD Initial ED EKG: none Comments: Patient presented today for spontaneous and seemingly unprovoked hematuria with urinary retention. Straight catheterization was unable to successfully drain the bladder so a coud-tip Cristobal catheter was placed with production of blood clot which eventually cleared to 500 mL of dark urine. Urinalysis showed no sign of infection, rather only significant hematuria. The patient is currently immobile secondary to his CVA and given the recent discharge from a prolonged hospital stay, there is no logistical support as of yet for transportation to and from outpatient procedures. Given this, I discussed the case with the patient's urologist Dr. Carnes who stated that it will be in the patient's best interest to perform his cystoscopy here tomorrow morning. He recommended hospitalization to the hospitalist service overnight for this purpose. Patient hospitalized in hemodynamically stable condition. Departure Departure Time of Disposition: 1709 Disposition: STILL A PATIENT Condition: Stable Clinical Impression Primary Impression: Hematuria Qualifiers: Hematuria type: gross Qualified Code: R31.0 - Gross hematuria Referrals: Aubrey Carolina MD (PCP/Family) Departure Forms: Customer Survey General Discharge Information Admission Note Spoke With: Eddie Dyer MD Documentation of Exam: Documentation of any treatments & extenuating circumstances including Concerns Regarding Discharge (functional status, medication knowledge or non-compliance, living conditions, etc.) that warrant an admission rather than observation: Patient has acute onset hematuria of unspecified etiology and is anticoagulated. Her risk for development of acute anemia. Given his fragile medical condition, despite the lack of acute anemia at present, I feel it was important to hospitalize him for trending of his hemoglobin and for cystoscopy in the morning with Dr. Carnes from urology to evaluate the etiology of his hematuria and definitively diagnose and treat it. Hospitalized in hemodynamically stable condition for this purpose. Critical Care Note Critical Care Note Critical Care Time: non-applicable
[2018-02-24 11:46] LABS: ABSOLUTE BASOPHIL COUNT 0 /CUMM (0.0-0.2); ABSOLUTE EOSINOPHIL COUNT 0.4 /CUMM (0.0-0.7); ABSOLUTE GRANULOCYTE CT 3.7 /CUMM (1.4-6.5); ABSOLUTE LYMPH COUNT 0.8 /CUMM (1.2-3.4); ABSOLUTE MONOCYTE COUNT 0.4 /CUMM (0.10-0.60); BASOPHIL % 0.7 % (0.0-2.0); EOSINOPHIL % 6.7 % (0-5); GRANULOCYTE % 70.6 % (42.2-75.2); HEMATOCRIT 39.6 % (42-52); MEAN CORPUSCULAR HGB 28.5 PG (27.0-31.0); MEAN CORPUSCULAR HGB CONC 33.4 G/DL (33.0-37.0); MEAN CORPUSCULAR VOLUME 85.3 FL (80.0-94.0); MEAN PLATELET VOLUME 7.7 FL (7.4-10.4); PLATELET COUNT 381 /CUMM (130-400); RBC DISTRIBUTION WIDTH 14.7 % (11.5-14.5); RED BLOOD CELL CT 4.64 /CUMM (4.70-6.10); WHITE BLOOD CELL COUNT 5.3 /CUMM (4.8-10.8)
--- NOTE | 2018-02-24 19:59 | History & Physical ---
Artis Bai MD,[facility] 02/24/181958: General Information and HPI MD Statement: I have seen and personally examined COREY MCGARRY and documented this H&P. The patient is a 87 year old M who presented with a patient stated chief complaint of [hematuria]. Source of Information: family Exam Limitations: unable to give history History of Present Illness: Patient is 87-year-old male with PMH of critical aortic stenosis (s/p valve replacement), HTN, HLP, DM, NSTEMI, dementia, stroke (w LEFT side hemiparesis), recent sepsis (completed 10w of antibiotics) was BIBA from home to the ED with hematuria. Patient's was present at the bedside and was contributing in history taking. After recently being discharged from SNF after a series of medical conditions ( brief below), Patient was in his usual state of health until this morning that nursing aid recongnized dried blood around the penis (patient is incontinant in the baseline), EMS was called and patient was transfered to ED. According to patient patient denied any new complaints including flank pain, dysuria, passing stools, chest pain , Shortness of breathing, increased weakness. 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 He is also bed bound and has an skin lesion in initial stages in the back. He eats puree food and regular thin. Accroding to patient was relatively healthy until he had a fall in March 2017, for which was admitted to [facility], diagnosed with NSTEMI and was transferred to [facility] for cardiac cath. Patient had cardiac valve ( ?aortic) replacement in June. Later in November he had another fall, he was transfered to [facility] and was diagonosed with Stroke (uncertain time ) along with bactriemia (with no identifiable source). He had PICC line placed and received antibiotics ( couldn't remember the names) for 5 weeks at [facility] and 5 weeks at rehab facility. Allergies/Medications Allergies: Coded Allergies: No Known Allergies (02/24/18) Home Med list Aspirin (Aspirin*) 81 MG TAB.CHEW 81 MG PO DAILY HEART Clopidogrel Bisulfate (Clopidogrel) 75 MG TABLET 1 TAB PO DAILY BLOOD THINNER (Reported) Metformin HCl 500 MG TABLET 500 MG PO BID DIABETES (Reported) Pravastatin Sodium 80 MG TABLET 1 TAB PO DAILY CHOLESTEROL (Reported) Past History Travel History Traveled to [place] past 21 day No Medical History Neurological: NONE EENT: NONE Cardiovascular: hypertension, hyperlipidemia, Aortic stenosis Respiratory: NONE Gastrointestinal: NONE Hepatic: NONE Renal: urinary incontinence Musculoskeletal: falls Psychiatric: NONE Endocrine: diabetes Blood Disorders: NONE Cancer(s): melanoma BOOK OR SCRIPT EDITOR/Reproductive: NONE History of MRSA: No History of VRE: No History of CDIFF: No Surgical History Surgical History: cataract 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 Psychosocial History Who Do You Live With? spouse Services at Home: None Primary Language: Kyrgyz Review of Systems Review of Systems Constitutional: Reports: see HPI. Exam & Diagnostic Data Last 24 Hrs of Vital Signs/I&O Vital Signs Date Time Temp Pulse Resp B/P B/P Pulse O2 O2 Flow FiO2 Mean Ox Delivery Rate 02/24 2325 98.2 51 18 107/61 92 Room Air 02/24 2145 95 Room Air 02/24 2035 96.8 158/80 02/24 2018 51 14 178/81 94 Room Air 02/24 1719 50 18 169/70 94 Room Air 02/24 1458 49 16 174/74 100 Room Air 02/24 1315 98.6 51 16 173/77 96 02/24 1054 96.1 53 16 162/72 95 Room Air Intake & Output 02/24 1600 02/24 0800 02/24 0000 Intake Total Output Total 500 Balance -500 Output, Urine 500 Patient 150 lb Weight Weight Reported by Patient Measurement Method Physical Exam General Appearance Oriented X3, Cooperative, No Acute Distress, Confised, arousable to verbal stimuli Skin Skin lesion in initial stages in back per Skin Temp/Moisture Exam: Warm/Dry Sepsis Skin Exam (color): Normal for Ethnicity Cardiovascular Normal S1, Normal S2 Lungs Clear to Auscultation, Normal Air Movement Abdomen Soft, No Tenderness Neurological L HEMIPARESIS STABISM, JAW AND TONGUE DEVIATION Extremities No Edema Last 24 Hrs of Labs/Ed: Laboratory Tests 02/24/18 1133: Anion Gap 11, Estimated GFR 57 L, BUN/Creatinine Ratio 27.5 H, Glucose 96, Calcium 9.7, Total Bilirubin 0.6, AST 35, ALT 41, Alkaline Phosphatase 61, Total Protein 7.0, Albumin 3.9, Globulin 3.1, Albumin/Globulin Ratio 1.3, CBC w Diff NO MAN DIFF REQ, RBC 4.64 L, MCV 85.3, MCH 28.5, MCHC 33.4, RDW 14.7 H, MPV 7.7, Gran % 70.6, Lymphocytes % 15.1 L, Monocytes % 6.9, Eosinophils % 6.7 H, Basophils % 0.7, Absolute Granulocytes 3.7, Absolute Lymphocytes 0.8 L, Absolute Monocytes 0.4, Absolute Eosinophils 0.4, Absolute Basophils 0, Urinalysis LIGHT H, Urine Color BLDY H, Urine Clarity CLDY H, Urine pH 5.5, Ur Specific [place] 1.025, Urine Protein 100 H, Urine Ketones TRACE H, Urine Nitrite POS H, Urine Bilirubin NEG@ICTO, Urine Urobilinogen 0.2, Ur Leukocyte Esterase TRACE H, Ur Microscopic SEDIMENT EXAMINED, Urine RBC PACKD H, Urine WBC 1-3 H, Ur Epithelial Cells RARE, Urine Crystals 1+ UR AC H, Urine Bacteria MOD H, Micro UA Comment MORE INFO: H, Urine Hemoglobin LARGE H, Urine Glucose NEG Microbiology 02/24 1133 URINE ROUT: Urine Culture - RECD Assessment/Plan Assessment: Patient is 87-year-old male presented with hematuria PMH of critical aortic stenosis (s/p valve replacement), HTN, HLP, DM, NSTEMI, dementia, stroke (w LEFT side hemiparesis), recent sepsis (completed 10w of antibiotics) VS, Ph Ex at admission: No fever, BP 162/72, Labs at admission: WBC 5.3, Hgb 13.2 Sodium 146, BUN 33, CR 1.2, BUN/creatinine ratio 27.5 UA: Nitrate positive, leukocyte esterase trace, RBC packed, hemoglobin large Imagings at admission: no imaging Patient was admitted to GM floor for management of following conditions: Hematuria chronic medical conditions - admit patient to Gm floor - Vital signs - monitor CBC in AM - Cristobal in place - watch for increase in hematuria for CBI - Hold antiplt for 1 day - cardio consult, Dr Ware in AM - Dr Carnes aware - Sliding scale and accuchecks DNR/DNI NPO for now DVT ppx: ALPS As Ranked By This Provider Problem List: 1. Hematuria Qualifiers Hematuria type: gross Qualified Code: R31.0 - Gross hematuria Core Measures/Misc (06/23) Acute Coronary Syndrome ACS Diagnosis: No Congestive Heart Failure Congestive Heart Failure Diagnosis No Cerebrovascular Accident CVA/TIA Diagnosis: No VTE (View Protocol) VTE Risk Factors Age>40 No Mechanical VTE Prophylaxis d/t N/A MechProphylax Ordered No VTE Pharm Prophylaxis d/t Medical Contraindication Sepsis (View protocol) Sepsis Present: No Eddie Dyer MD 02/24/18 2225: Attending MD Review Statement Attending Statement Attending MD Statement: examined this patient, discuss w/resident/PA/BOOM TENDER, agreed w/resident/PA/BOOM TENDER, reviewed EMR data (avail), reviewed images, amended to note Attending Assessment/Plan: The patient is an 87 yo male with h/o HTN, HL, DM2, CAD (NSTEMI), and critical who was recently discharged from [facility]. He is S/P MO here with subsequent transfer to [facility] where he underwent bypass and valve replacement (?aortic). He had been discharged from [facility] 2 weeks ago and subsequently had a minor fall. He has a distant h/o prostate issues, however aide at home (has VNA) noted blood on his diapers today at home. He denied any lightheadedness, chest pain, dyspnea, or other symptoms. He has been on a pureed diet. Cristobal was placed in ED. Physical Exam: VS: T 98.6, P 49, R 16, BP 174/74, PO 100% RA HEENT: eyes- PERRLA, EOMI tracie- dry mucosa Neck- no bruits or JVD Chest: diminished breath sounds at bases, few rhonchi Cor: RRR nl S1, S2 w/o murm Abd: BS+, soft, NT, - masses or HSM Ext: no significant edema. Neuro: drowsy as had no sleep last pm. Famliy at bedside. Labs/Tests -as above. Impression/Plan: #Gross Hematuria- noted since this morning. Cristobal place with some blood tinge. ED had spoken with Dr. Carnes. ? urinary bleed cause. Plan: Admit to medical service. Cristobal- observe I/Os and coloration of urine. Urology consult - Dr. Carnes. Check US- bladder, watch for clots. Hold ASA/Plavix x 1 day. For cystoscopy on 5/22. Follow H/H. If increased bleeding will need CBI. #CAD/S/P MO, angioplasty/stents/valve replacement (?bioprosthetic). Plan: As above, hold Plavix/ASA as is actively bleeding. Cardiology consult- Dr. Amaya group in morning. Make them aware about ASA.Plavix. #DM2- on Metformin at home.in. Plan: Hold Metformin and cover with sliding scale insulin. #Hyperlipidemia- on Pravastatin. Plan: Continue Pravastatin. Dayron PICKERING,[facility] 02/25/18 0550: Resident Review Statement Resident Statement: examined this patient, discussed with logistics intern, agreed with logistics intern, discussed with family, reviewed EMR data (avail) Other Findings: Corey is 87-year-old male who were in good health condition up to April 2017 had an MO status post stent followed by aortic valve replacement June 2017, struck November 2017 with right hemiparesis, sepsis of unknown origin status post long course of antibiotic, diabetes, hypertension, hyperlipidemia, vascular dementia who were discharged from [facility] short-term rehab on January 19. History was obtained from patient's , the limitation is patient's dementia. She reported that patient was in his regular state of health after discharge from [facility] up to yesterday when the aide found blood in his diaper. Prior to that patient had normal color urine, never had past medical history of hematuria. Patient used to follow-up with Dr. Carnes years ago but she could not remember for what reason. Patient denied any abdominal pain, diarrhea, constipation, nausea or vomiting, hemoptysis, hematemesis, hematochezia, melena. reported good oral intake, patient has an aide and visiting nurse. Patient used to follow with Dr. Dave, he continued to be on aspirin and Plavix but no blood thinners. Patient diet is pure and regular Problem list #Hematuria #CAD status post stent placement April 2017 #Overtake valve replacement June 2017 #Stroke with left side hemiparesis and urine incontinence Plan Admit to general medical floor Vitals every shift Guaiac stool Keep n.p.o. for cystoscopy in a.m. Urology Dr. Carnes was informed by ED with plan for cystoscopy Continuing medication except for aspirin and Plavix Cardiology consultation IV fluid Accu check and NovoLog sliding scale DVT prophylaxis Alps Diet n.p.o. CODE STATUS DNR/DNI
[2018-02-24 23:25] VITALS: BP 107/61
[2018-02-25 07:18] VITALS: BP 136/58
--- NOTE | 2018-02-25 07:50 | Cons- Urology ---
General Information and HPI Consulting Request Date of Consult: 02/25/18 Requested By: Eddie Dyer MD Reason for Consult: gross hematuria with blood loss anemia Source of Information: patient, old records Allergies/Medications Allergies: Coded Allergies: No Known Allergies (02/24/18) Home Med List: Aspirin (Aspirin*) 81 MG TAB.CHEW 81 MG PO DAILY HEART Clopidogrel Bisulfate (Clopidogrel) 75 MG TABLET 1 TAB PO DAILY BLOOD THINNER (Reported) Metformin HCl 500 MG TABLET 500 MG PO BID DIABETES (Reported) Pravastatin Sodium 80 MG TABLET 1 TAB PO DAILY CHOLESTEROL (Reported) Current Medications: Current Medications Sig/Max Start time Last Medication Dose Route Stop Time Status Admin Acetaminophen 650 MG Q6P PRN 02/24 2215 AC PO Dextrose/Sodium 1,000 ML .Q20H 02/24 2215 AC 02/24 Chloride IV 2238 Insulin Human Regular 0 Q6 02/24 2359 AC 02/25 SC 0555 Pravastatin Sodium 80 MG 1700 02/24 2230 AC 02/24 PO 2253 Sodium Chloride 1,000 ML ONCE ONE 02/24 1130 DC 02/24 IV 02/24 1131 1141 Past History Medical History Neurological: CVA EENT: NONE Cardiovascular: hypertension, hyperlipidemia, Aortic stenosis Respiratory: NONE Gastrointestinal: NONE Hepatic: NONE Renal: urinary incontinence Musculoskeletal: falls Psychiatric: NONE Endocrine: diabetes Blood Disorders: NONE Cancer(s): melanoma WAREDRESSER/Reproductive: NONE Surgical History Pertinent Surgical History: cataract 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 Psychosocial History Where Do You Live? Home Who Do You Live With? spouse Services at Home: Home Health Aide, Nursing Primary Language: Greek Smoking Status: Former Smoker Functional Ability ADLs Needs Assist: dressing, eating, toileting, bathing. IADLs Needs Assist: shopping, housework, finances, food prep, telephone, transportation, medication admin. Employment History Employment: Retired Retired? yes Exam & Diagnostic Data Vital Signs and I&O Vital Signs Date Time Temp Pulse Resp B/P B/P Pulse O2 O2 Flow FiO2 Mean Ox Delivery Rate 02/25 718 97.4 51 18 136/58 98 Room Air 02/24 2325 98.2 51 18 107/61 92 Room Air 02/245 95 Room Air 02/24 2035 96.8 158/80 02/24 2018 51 14 178/81 94 Room Air 02/24 1719 50 18 169/70 94 Room Air 02/24 1458 49 16 174/74 100 Room Air 02/24 1315 98.6 51 16 173/77 96 02/24 1054 96.1 53 16 162/72 95 Room Air Intake & Output 02/25 0800 02/25 0000 02/24 1600 02/24 0800 02/24 0000 02/23 1600 Intake Total 400 Output Total 400 250 500 Balance 0 -250 -500 Intake, IV 400 Number 1 Bowel Movements Output, Urine 400 250 500 Patient 129 lb 129 lb 150 lb Weight Weight Bed scale Bed scale Reported by Patient Measurement Method Last 24 Hours of Labs: Laboratory Tests 02/24 1133 Chemistry Sodium (137 - 145 mmol/L) 146 H Potassium (3.5 - 5.1 mmol/L) 4.9 Chloride (98 - 107 mmol/L) 105 Carbon Dioxide (22 - 30 mmol/L) 30 Anion Gap (5 - 16) 11 BUN (9 - 20 mg/dL) 33 H Creatinine (0.7 - 1.2 mg/dL) 1.2 Estimated GFR (>60 ml/min) 57 L BUN/Creatinine Ratio (7 - 25 %) 27.5 H Glucose (65 - 99 mg/dL) 96 Calcium (8.4 - 10.2 mg/dL) 9.7 Total Bilirubin (0.2 - 1.3 mg/dL) 0.6 AST (17 - 59 U/L) 35 ALT (21 - 72 U/L) 41 Alkaline Phosphatase (< 127 U/L) 61 Total Protein (6.3 - 8.2 g/dL) 7.0 Albumin (3.5 - 5.0 g/dL) 3.9 Globulin (1.9 - 4.2 gm/dL) 3.1 Albumin/Globulin Ratio (1.1 - 2.2 %) 1.3 Hematology CBC w Diff NO MAN DIFF REQ WBC (4.8 - 10.8 /CUMM) 5.3 RBC (4.70 - 6.10 /CUMM) 4.64 L Hgb (14.0 - 18.0 G/DL) 13.2 L Hct (42 - 52 %) 39.6 L MCV (80.0 - 94.0 FL) 85.3 MCH (27.0 - 31.0 PG) 28.5 MCHC (33.0 - 37.0 G/DL) 33.4 RDW (11.5 - 14.5 %) 14.7 H Plt Count (130 - 400 /CUMM) 381 MPV (7.4 - 10.4 FL) 7.7 Gran % (42.2 - 75.2 %) 70.6 Lymphocytes % (20.5 - 51.1 %) 15.1 L Monocytes % (1.7 - 9.3 %) 6.9 Eosinophils % (0 - 5 %) 6.7 H Basophils % (0.0 - 2.0 %) 0.7 Absolute Granulocytes (1.4 - 6.5 /CUMM) 3.7 Absolute Lymphocytes (1.2 - 3.4 /CUMM) 0.8 L Absolute Monocytes (0.10 - 0.60 /CUMM) 0.4 Absolute Eosinophils (0.0 - 0.7 /CUMM) 0.4 Absolute Basophils (0.0 - 0.2 /CUMM) 0 Urines Urinalysis LIGHT H Urine Color (YEL,AMB,STR) BLDY H Urine Clarity (CLEAR) CLDY H Urine pH (5.0 - 8.0) 5.5 Ur Specific [place] (1.001 - 1.035) 1.025 Urine Protein (NEG,<30 MG/DL) 100 H Urine Ketones (NEG) TRACE H Urine Nitrite (NEG) POS H Urine Bilirubin (NEG) NEG@ICTO Urine Urobilinogen (0.1 - 1.0 EU/dl) 0.2 Ur Leukocyte Esterase (NEG) TRACE H Ur Microscopic SEDIMENT EXAMINED Urine RBC (0 - 5 /HPF) PACKD H Urine WBC (0 - 2 /HPF) 1-3 H Ur Epithelial Cells (NONE,FEW) RARE Urine Crystals 1+ UR AC H Urine Bacteria (NEG/NONE) MOD H Micro UA Comment MORE INFO: H Urine Hemoglobin (NEG) LARGE H Urine Glucose (N MG/DL) NEG Assessment/Plan Assessment/Plan hematuria: for cystoscopy today. Copies To: Bc Carnes MD Consult Acknowledgment - Thank you for your consult request. Attending MD Review Statement Attending Statement Attending MD Statement: examined this patient, discuss w/resident/PA/RIB BENDER
--- NOTE | 2018-02-25 07:55 | PN- Housestaff ---
Subjective Follow-up For: Gross hematuria Subjective: Patient seen and examined. Resting comfortably. Easily arousable. Does not offer any complaints. Baseline dementia not a good historian. at bedside concerned about ongoing hematuria. No overnight acute events Review of Systems Constitutional: Reports: see HPI. Objective Last 24 Hrs of Vital Signs/I&O Vital Signs Date Time Temp Pulse Resp B/P B/P Pulse O2 O2 Flow FiO2 Mean Ox Delivery Rate 02/25 1124 97.5 54 20 150/60 92 Room Air 02/25 0718 97.4 51 18 136/58 98 Room Air 02/24 2325 98.2 51 18 107/61 92 Room Air 02/24 2145 95 Room Air 02/24 2035 96.8 158/80 02/24 2018 51 14 178/81 94 Room Air 02/24 1719 50 18 169/70 94 Room Air 02/24 1458 49 16 174/74 100 Room Air Intake & Output 02/25 1600 02/25 0800 02/25 0000 Intake Total 400 Output Total 400 250 Balance 0 -250 Intake, IV 400 Number 1 Bowel Movements Output, Urine 400 250 Patient 129 lb 129 lb Weight Weight Bed scale Bed scale Measurement Method Physical Exam General Appearance: Cooperative, No Acute Distress Cardiovascular: Normal S1, Normal S2 Lungs: Clear to Auscultation Abdomen: Normal Bowel Sounds, Soft Neurological: Normal Speech Other Physical Findings: Dubon catheter in palce clear urine in bag Current Medications: Current Medications Sig/Max Start time Last Medication Dose Route Stop Time Status Admin Acetaminophen 650 MG Q6P PRN 02/24 2215 AC PO Ceftriaxone Sodium 0 .STK-MED ONE 02/25 1003 DC IV 02/25 1004 Chlorhexidine 0 .STK-MED ONE 02/25 1003 DC Gluconate TOP 02/25 1004 Dextrose/Sodium 1,000 ML .Q20H 02/24 2215 AC 02/24 Chloride IV 2238 Insulin Human Regular 0 Q6 02/24 2359 AC 02/25 SC 1150 Pravastatin Sodium 80 MG 1700 02/24 2230 AC 02/24 PO 2253 Last 24 Hrs of Lab/Ed Results Last 24 Hrs of Labs/Mics: Laboratory Tests 02/25/18 0720: Anion Gap 10, Estimated GFR > 60, BUN/Creatinine Ratio 23.6, CBC w Diff NO MAN DIFF REQ, RBC 4.26 L, MCV 86.1, MCH 28.9, MCHC 33.6, RDW 14.3, MPV 7.9, Gran % 72.5, Lymphocytes % 13.3 L, Monocytes % 8.4, Eosinophils % 5.3 H, Basophils % 0.5, Absolute Granulocytes 4.7, Absolute Lymphocytes 0.9 L, Absolute Monocytes 0.5, Absolute Eosinophils 0.3, Absolute Basophils 0 Lines/Diet/Fluids Catheters/Tubes: dubon Dubon Still Needed? Yes Assessment/Plan Assessment: The patient is 87-year-old male with PMH of [place] april 2017 status post stent followed by aortic valve replacement June 2017, right hemiparesis November 2017, sepsis of unknown origin status post long course of antibiotic, diabetes, hypertension, hyperlipidemia, vascular dementia. He was recently discharged from [facility] short-term rehab on January 19. The patient presented to [place] ED with a complaint of hematuria. When his aide noticed blood in his diaper. No past medical history of hematuria The patient is admitted to general medicine floor. He is being treated evaluate for following conditions #Gross hematuria No history of hematuria in the past No recent instrumentation. Patient is incontinent at baseline and were stapled. Etiology unknown at present -Cystoscopy planned for today with Dr. Carnes -Nothing by mouth in anticipation of procedure -Renal Ultrasound ordered to see the urogenital tract with focus on the bladder and ureters -Asprin and Plavix on hold #CAD status post stent placement. 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 As per their recommendation. Asprin can be restarted after consulting with urology #History of diabetes mellitus -Metformin on hold -Accu-Cheks and insulin sliding scale #History of hyperlipidemia continue statin #Nothing by mouth for now, Puree diet at baseline/ DVT prophylaxis with ALPS only/DNR/DNI Problem List: 1. Hematuria Pain Ratin Pain Location: none Pain Goal: Pain 4 or less Pain Plan: prn Tomorrow's Labs & Rationales: cbc
[2018-02-25 08:53] LABS: ABSOLUTE BASOPHIL COUNT 0 /CUMM (0.0-0.2); ABSOLUTE EOSINOPHIL COUNT 0.3 /CUMM (0.0-0.7); ABSOLUTE GRANULOCYTE CT 4.7 /CUMM (1.4-6.5); ABSOLUTE LYMPH COUNT 0.9 /CUMM (1.2-3.4); ABSOLUTE MONOCYTE COUNT 0.5 /CUMM (0.10-0.60); BASOPHIL % 0.5 % (0.0-2.0); EOSINOPHIL % 5.3 % (0-5); GRANULOCYTE % 72.5 % (42.2-75.2); HEMATOCRIT 36.7 % (42-52); MEAN CORPUSCULAR HGB 28.9 PG (27.0-31.0); MEAN CORPUSCULAR HGB CONC 33.6 G/DL (33.0-37.0); MEAN CORPUSCULAR VOLUME 86.1 FL (80.0-94.0); MEAN PLATELET VOLUME 7.9 FL (7.4-10.4); PLATELET COUNT 345 /CUMM (130-400); RBC DISTRIBUTION WIDTH 14.3 % (11.5-14.5); RED BLOOD CELL CT 4.26 /CUMM (4.70-6.10); WHITE BLOOD CELL COUNT 6.4 /CUMM (4.8-10.8)
--- NOTE | 2018-02-25 10:49 | Cons- Cardiology ---
General Information and HPI Consulting Request Date of Consult: 02/25/18 Requested By: Nilda PICKERING,Marleny Reason for Consult: History of CAD and TAVR Source of Information: old records Exam Limitations: unable to give history, dementia History of Present Illness: The patient is a 87-year-old male history of hypertension, diabetes, dementia, dyslipidemia, coronary artery disease status post non-ST elevation myocardial infarction April 2017 catheterization demonstrated triple-vessel coronary artery disease and he received a bare-metal stent to the circumflex. He was also found to have critical aortic stenosis and underwent TAVR June 2017. He also has a history of CVA November 2017. He was admitted December 08, 2017 with fever and chills and found to have E faecalis bacteremia. GUERO was negative for endocarditis and ejection fraction was greater than 55%. He now presents with evidence of hematuria. Patient is status post cystoscopy today is sedated and unable to provide any further history. Allergies/Medications Allergies: Coded Allergies: No Known Allergies (02/24/18) Home Med List: Aspirin (Aspirin*) 81 MG TAB.CHEW 81 MG PO DAILY HEART Clopidogrel Bisulfate (Clopidogrel) 75 MG TABLET 1 TAB PO DAILY BLOOD THINNER (Reported) Metformin HCl 500 MG TABLET 500 MG PO BID DIABETES (Reported) Pravastatin Sodium 80 MG TABLET 1 TAB PO DAILY CHOLESTEROL (Reported) Review of Systems Review of Systems: Review of systems unobtainable Past History Travel History Traveled to [place] past 21 day No Medical History Neurological: CVA EENT: NONE Cardiovascular: hypertension, hyperlipidemia, Aortic stenosis Respiratory: NONE Gastrointestinal: NONE Hepatic: NONE Renal: urinary incontinence Musculoskeletal: falls Psychiatric: NONE Endocrine: diabetes Blood Disorders: NONE Cancer(s): melanoma 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 Psychosocial History Where Do You Live? Home Who Do You Live With? spouse Services at Home: Home Health Aide, Nursing Primary Language: Azerbaijani Smoking Status: Former Smoker Functional Ability ADLs Needs Assist: dressing, eating, toileting, bathing. IADLs Needs Assist: shopping, housework, finances, food prep, telephone, transportation, medication admin. Employment History Employment: Retired Exam & Diagnostic Data Vital Signs and I&O Vital Signs Date Time Temp Pulse Resp B/P B/P Pulse O2 O2 Flow FiO2 Mean Ox Delivery Rate 02/25 0718 97.4 51 18 136/58 98 Room Air 02/24 2325 98.2 51 18 107/61 92 Room Air 02/24 2145 95 Room Air 02/24 2035 96.8 158/80 02/24 2018 51 14 178/81 94 Room Air 02/24 1719 50 18 169/70 94 Room Air 02/24 1458 49 16 174/74 100 Room Air 02/24 1315 98.6 51 16 173/77 96 02/24 1054 96.1 53 16 162/72 95 Room Air Intake & Output 02/25 1600 02/25 0800 02/25 0000 02/24 1600 02/24 0800 02/24 0000 Intake Total 400 Output Total 400 250 500 Balance 0 -250 -500 Intake, IV 400 Number 1 Bowel Movements Output, Urine 400 250 500 Patient 129 lb 129 lb 150 lb Weight Weight Bed scale Bed scale Reported by Patient Measurement Method Physical Exam: Patient is a well-developed cachectic sedated HEENT is unremarkable Neck is supple there is no JVD Lungs are clear Heart regular rhythm S1 and S2 are normal no gallops or rubs 1/6 JING RUSB Abdomen bowel sounds positive Extremities without edema Labs/Ed Results: Laboratory Tests 02/25 02/24 0720 1133 Chemistry Sodium (137 - 145 mmol/L) 145 146 H Potassium (3.5 - 5.1 mmol/L) 4.5 4.9 Chloride (98 - 107 mmol/L) 106 105 Carbon Dioxide (22 - 30 mmol/L) 29 30 Anion Gap (5 - 16) 10 11 BUN (9 - 20 mg/dL) 26 H 33 H Creatinine (0.7 - 1.2 mg/dL) 1.1 1.2 Estimated GFR (>60 ml/min) > 60 57 L BUN/Creatinine Ratio (7 - 25 %) 23.6 27.5 H Glucose (65 - 99 mg/dL) 96 Calcium (8.4 - 10.2 mg/dL) 9.7 Total Bilirubin (0.2 - 1.3 mg/dL) 0.6 AST (17 - 59 U/L) 35 ALT (21 - 72 U/L) 41 Alkaline Phosphatase (< 127 U/L) 61 Total Protein (6.3 - 8.2 g/dL) 7.0 Albumin (3.5 - 5.0 g/dL) 3.9 Globulin (1.9 - 4.2 gm/dL) 3.1 Albumin/Globulin Ratio (1.1 - 2.2 %) 1.3 Hematology CBC w Diff NO MAN DIFF REQ NO MAN DIFF REQ WBC (4.8 - 10.8 /CUMM) 6.4 5.3 RBC (4.70 - 6.10 /CUMM) 4.26 L 4.64 L Hgb (14.0 - 18.0 G/DL) 12.3 L 13.2 L Hct (42 - 52 %) 36.7 L 39.6 L MCV (80.0 - 94.0 FL) 86.1 85.3 MCH (27.0 - 31.0 PG) 28.9 28.5 MCHC (33.0 - 37.0 G/DL) 33.6 33.4 RDW (11.5 - 14.5 %) 14.3 14.7 H Plt Count (130 - 400 /CUMM) 345 381 MPV (7.4 - 10.4 FL) 7.9 7.7 Gran % (42.2 - 75.2 %) 72.5 70.6 Lymphocytes % (20.5 - 51.1 %) 13.3 L 15.1 L Monocytes % (1.7 - 9.3 %) 8.4 6.9 Eosinophils % (0 - 5 %) 5.3 H 6.7 H Basophils % (0.0 - 2.0 %) 0.5 0.7 Absolute Granulocytes (1.4 - 6.5 /CUMM) 4.7 3.7 Absolute Lymphocytes (1.2 - 3.4 /CUMM) 0.9 L 0.8 L Absolute Monocytes (0.10 - 0.60 /CUMM) 0.5 0.4 Absolute Eosinophils (0.0 - 0.7 /CUMM) 0.3 0.4 Absolute Basophils (0.0 - 0.2 /CUMM) 0 0 Urines Urinalysis LIGHT H Urine Color (YEL,AMB,STR) BLDY H Urine Clarity (CLEAR) CLDY H Urine pH (5.0 - 8.0) 5.5 Ur Specific [place] (1.001 - 1.035) 1.025 Urine Protein (NEG,<30 MG/DL) 100 H Urine Ketones (NEG) TRACE H Urine Nitrite (NEG) POS H Urine Bilirubin (NEG) NEG@ICTO Urine Urobilinogen (0.1 - 1.0 EU/dl) 0.2 Ur Leukocyte Esterase (NEG) TRACE H Ur Microscopic SEDIMENT EXAMINED Urine RBC (0 - 5 /HPF) PACKD H Urine WBC (0 - 2 /HPF) 1-3 H Ur Epithelial Cells (NONE,FEW) RARE Urine Crystals 1+ UR AC H Urine Bacteria (NEG/NONE) MOD H Micro UA Comment MORE INFO: H Urine Hemoglobin (NEG) LARGE H Urine Glucose (N MG/DL) NEG Diagnostic Data EKG Results Sinus rhythm premature atrial complexes and nonspecific ST-T wave changes Assessment/Plan Assessment/Plan 1. Triple-vessel coronary artery disease status post bare-metal stent to the circumflex April 2017 2. Critical aortic stenosis status post TAVR June 2017 3. Hypertension 4. Hyperlipidemia 5. Diabetes 6. S/P CVA 7. Dementia Recommendations 1. Continue to hold aspirin and plavix 2. Due to his history of CAD, would resume aspirin when cleared by urology 3. Resume statin when able to tolerate PO Thank you for allowing [facility] to participate in the care of your patient. Consult Acknowledgment - Thank you for your consult request.
--- NOTE | 2018-02-25 11:19 | PN- Att Addend ---
Attending Addendum Attending Brief Note Patient seen and examined. Plan of care discussed with the medical team and the patient. Available lab work and radiology test reports were reviewed. Patient status post cystoscopy today. No recent fever chills nausea vomiting or chest pain reported. Patient's is at the bedside. His Cristobal is draining reddish colored urine. Exam: General: Patient awake but appears lethargic and partially oriented without any distress CVS: S1 plus S2 without any murmur or gallops Chest: Few scattered crepitation without any wheeze. There is no respiratory distress. 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: Awake partially oriented without any focal neuro deficit and follows commands appropriately Extremities: No edema; no clubbing or cyanosis noted Assessment * Hematuria * History of severe aortic stenosis status post valve replacement * History diabetes * History of an STEMI * History of stroke with left-sided residual hemiparesis * History of sepsis * History of dementia * History of NSTEMI Plan * Patient underwent cystoscopy today- we will wait for findings on cystoscopy and operative note * If okayed by urology patient can resume his aspirin and Plavix * Repeat CBC tomorrow * Keep Cristobal in for now Current Medications Sig/Max Start time Last Medication Dose Route Stop Time Status Admin Acetaminophen 650 MG Q6P PRN 02/24 2215 AC PO Ceftriaxone Sodium 0 .STK-MED ONE 02/25 1003 DC IV 02/25 1004 Chlorhexidine 0 .STK-MED ONE 02/25 1003 DC Gluconate TOP 02/25 1004 Dextrose/Sodium 1,000 ML .Q20H 02/24 2215 AC 02/24 Chloride IV 2238 Insulin Human Regular 0 Q6 02/24 2359 AC 02/25 SC 0555 Pravastatin Sodium 80 MG 1700 02/24 2230 AC 02/24 PO 2253 Sodium Chloride 1,000 ML ONCE ONE 02/24 1130 DC 02/24 IV 02/24 1131 1141 Laboratory Tests 02/25/18 0720: Anion Gap 10, Estimated GFR > 60, BUN/Creatinine Ratio 23.6, CBC w Diff NO MAN DIFF REQ, RBC 4.26 L, MCV 86.1, MCH 28.9, MCHC 33.6, RDW 14.3, MPV 7.9, Gran % 72.5, Lymphocytes % 13.3 L, Monocytes % 8.4, Eosinophils % 5.3 H, Basophils % 0.5, Absolute Granulocytes 4.7, Absolute Lymphocytes 0.9 L, Absolute Monocytes 0.5, Absolute Eosinophils 0.3, Absolute Basophils 0 02/24/18 1133: Anion Gap 11, Estimated GFR 57 L, BUN/Creatinine Ratio 27.5 H, Glucose 96, Calcium 9.7, Total Bilirubin 0.6, AST 35, ALT 41, Alkaline Phosphatase 61, Total Protein 7.0, Albumin 3.9, Globulin 3.1, Albumin/Globulin Ratio 1.3, CBC w Diff NO MAN DIFF REQ, RBC 4.64 L, MCV 85.3, MCH 28.5, MCHC 33.4, RDW 14.7 H, MPV 7.7, Gran % 70.6, Lymphocytes % 15.1 L, Monocytes % 6.9, Eosinophils % 6.7 H, Basophils % 0.7, Absolute Granulocytes 3.7, Absolute Lymphocytes 0.8 L, Absolute Monocytes 0.4, Absolute Eosinophils 0.4, Absolute Basophils 0, Urinalysis LIGHT H, Urine Color BLDY H, Urine Clarity CLDY H, Urine pH 5.5, Ur Specific [place] 1.025, Urine Protein 100 H, Urine Ketones TRACE H, Urine Nitrite POS H, Urine Bilirubin NEG@ICTO, Urine Urobilinogen 0.2, Ur Leukocyte Esterase TRACE H, Ur Microscopic SEDIMENT EXAMINED, Urine RBC PACKD H, Urine WBC 1-3 H, Ur Epithelial Cells RARE, Urine Crystals 1+ UR AC H, Urine Bacteria MOD H, Micro UA Comment MORE INFO: H, Urine Hemoglobin LARGE H, Urine Glucose NEG Microbiology 02/24 113 URINE ROUT: Urine Culture - RES Vital Signs Date Time Temp Pulse Resp B/P B/P Pulse O2 O2 Flow FiO2 Mean Ox Delivery Rate 02/25 0718 97.4 51 18 136/58 98 Room Air 02/24 2325 98.2 51 18 107/61 92 Room Air 02/24 2145 95 Room Air 02/24 2035 96.8 158/80 02/24 2018 51 14 178/81 94 Room Air 02/24 1719 50 18 169/70 94 Room Air 02/24 1458 49 16 174/74 100 Room Air 02/24 1315 98.6 51 16 173/77 96 Intake & Output 02/25 1600 02/25 0800 02/25 0000 Intake Total 400 Output Total 400 250 Balance 0 -250 Intake, IV 400 Number 1 Bowel Movements Output, Urine 400 250 Patient 129 lb 129 lb Weight Weight Bed scale Bed scale Measurement Method
[2018-02-25 11:24] VITALS: BP 150/60
[2018-02-25 14:45] VITALS: BP 130/82
--- NOTE | 2018-02-25 17:28 | ULTRASOUND REPORT ---
EXAMINATION: RENAL ULTRASOUND CLINICAL INFORMATION: Gross hematuria. COMPARISON: None. TECHNIQUE: Real-time imaging of the kidneys and bladder. FINDINGS: RIGHT KIDNEY: There is neither hydronephrosis nor nephrolithiasis. There is an 11 mm cyst within the interpole region. The right kidney measures 10.1 cm. LEFT KIDNEY: There is no hydronephrosis. There is a 5 mm nonobstructive calculus within the lower pole. The left kidney measures 10.6 cm. BLADDER: A Cristobal catheter is in place within the urinary bladder. The urinary bladder is nearly empty. The prostate gland is enlarged measuring 4.6 x 3.8 x 5.7 cm for a volume of 52 mL. IMPRESSION: No hydronephrosis. 5 mm nonobstructive left renal calculus. Enlarged urinary bladder. Limited evaluation of the urinary bladder as there is a Cristobal catheter in place.
[2018-02-25 21:05] VITALS: BP 126/62
[2018-02-26 05:46] VITALS: BP 122/62
--- NOTE | 2018-02-26 07:45 | PN- Urology ---
Surgical Brief Attending Note Brief Attending Note: h/h stable. u/o via dubon intermittently clear. dc as per medicine with dubon: to be changed monthly by VNS.
--- NOTE | 2018-02-26 07:47 | Operative Report ---
Operative/Inv Procedure Report Surgery Date: 02/25/18 Name of Procedure: cystoscopy: fulguration of prostate bleeding vessels Pre-Operative Diagnosis: gross hematuria Post-Operative Diagnosis: severe BPH with hypervscular prostate: no bladder tumor seen Estimated Blood Loss: scant Surgeon/Supreme Court Judge: md berry arnold-urology Anesthesia: moderate sedation Drains: 18fr [place] tip dubon Complications: none Operative/Procedure Note Findings: large prostate Discharge Disposition: PACU Additional Comments: start pt on Proscar 5mg/day to help reduce prostate size, but primarily help decrease prostate bleeding. CC: Bc Berry MD
[2018-02-26 08:33] LABS: ABSOLUTE BASOPHIL COUNT 0 /CUMM (0.0-0.2); ABSOLUTE EOSINOPHIL COUNT 0.1 /CUMM (0.0-0.7); ABSOLUTE GRANULOCYTE CT 8.9 /CUMM (1.4-6.5); ABSOLUTE LYMPH COUNT 0.4 /CUMM (1.2-3.4); ABSOLUTE MONOCYTE COUNT 0.7 /CUMM (0.10-0.60); BASOPHIL % 0.3 % (0.0-2.0); EOSINOPHIL % 0.9 % (0-5); HEMATOCRIT 37.9 % (42-52); MEAN CORPUSCULAR HGB 28.5 PG (27.0-31.0); MEAN CORPUSCULAR HGB CONC 33.2 G/DL (33.0-37.0); MEAN CORPUSCULAR VOLUME 85.7 FL (80.0-94.0); MEAN PLATELET VOLUME 7.6 FL (7.4-10.4); RBC DISTRIBUTION WIDTH 14.7 % (11.5-14.5); RED BLOOD CELL CT 4.43 /CUMM (4.70-6.10)
[2018-02-26 09:15] LABS: GRANULOCYTE % 88.3 % (42.2-75.2); PLATELET COUNT 329 /CUMM (130-400); WHITE BLOOD CELL COUNT 10.1 /CUMM (4.8-10.8)
--- NOTE | 2018-02-26 13:21 | PN- Att Addend ---
Attending Addendum Attending Brief Note Patient seen and examined. Plan of care discussed with the medical team and the patient. Available lab work and radiology test reports were reviewed. Patient status post cystoscopy yesterday. No recent fever chills nausea vomiting or chest pain reported. Patient's is at the bedside. His Cristobal is draining dark reddish colored urine without any clots. He appears lethargic. He denies any pain. Exam: General: Patient awake but appears lethargic and partially oriented without any distress CVS: S1 plus S2 without any murmur or gallops Chest: Few scattered crepitation without any wheeze. There is no respiratory distress. 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 but lethargic and prefers to keep his eyes closed partially oriented without any focal neuro deficit and follows commands appropriately Extremities: No edema; no clubbing or cyanosis noted Assessment * Hematuria- persistent, patient status post cystoscopy yesterday which showed a large prostate * History of severe aortic stenosis status post valve replacement * History diabetes * History of stroke with left-sided residual hemiparesis * History of sepsis * History of dementia * History of NSTEMI Plan * Given persistent hematuria continue to hold aspirin and Plavix for now * Repeat CBC tomorrow * Keep Cristobal in for now * Palliative care consult to delineate goals of care; as per his patient has poor quality of life * Continue finasteride * Please ask urology with the patient needs CBI given persistent hematuria Current Medications Sig/Max Start time Last Medication Dose Route Stop Time Status Admin Acetaminophen 650 MG Q6P PRN 02/24 2215 AC PO Dextrose/Sodium 1,000 ML .Q20H 02/24 2215 DC 02/25 Chloride IV 1439 Finasteride 5 MG DAILY 02/26 0900 AC 02/26 PO 0834 Insulin Aspart 0 TIDAC 02/25 1700 AC SC Insulin Human Regular 0 Q6 02/24 2359 DC 02/25 SC 1150 Patient Medication 1 ED ONE ONE 02/26 1145 SD Teaching ED 02/26 1146 Patient Medication 1 ED ONE ONE 02/25 1715 DC 02/25 Teaching ED 02/25 1716 1749 Pravastatin Sodium 80 MG 1700 02/24 2230 AC 02/25 PO 1749 Laboratory Tests 02/26/18 0745: CBC w Diff NO MAN DIFF REQ, RBC 4.43 L, MCV 85.7, MCH 28.5, MCHC 33.2, RDW 14.7 H, MPV 7.6, Gran % 88.3 H, Lymphocytes % 3.7 L, Monocytes % 6.8, Eosinophils % 0.9, Basophils % 0.3, Absolute Granulocytes 8.9 H, Absolute Lymphocytes 0.4 L, Absolute Monocytes 0.7 H, Absolute Eosinophils 0.1, Absolute Basophils 0 02/25/18 0720: Anion Gap 10, Estimated GFR > 60, BUN/Creatinine Ratio 23.6, CBC w Diff NO MAN DIFF REQ, RBC 4.26 L, MCV 86.1, MCH 28.9, MCHC 33.6, RDW 14.3, MPV 7.9, Gran % 72.5, Lymphocytes % 13.3 L, Monocytes % 8.4, Eosinophils % 5.3 H, Basophils % 0.5, Absolute Granulocytes 4.7, Absolute Lymphocytes 0.9 L, Absolute Monocytes 0.5, Absolute Eosinophils 0.3, Absolute Basophils 0 02/24/18 1133: Anion Gap 11, Estimated GFR 57 L, BUN/Creatinine Ratio 27.5 H, Glucose 96, Calcium 9.7, Total Bilirubin 0.6, AST 35, ALT 41, Alkaline Phosphatase 61, Total Protein 7.0, Albumin 3.9, Globulin 3.1, Albumin/Globulin Ratio 1.3, CBC w Diff NO MAN DIFF REQ, RBC 4.64 L, MCV 85.3, MCH 28.5, MCHC 33.4, RDW 14.7 H, MPV 7.7, Gran % 70.6, Lymphocytes % 15.1 L, Monocytes % 6.9, Eosinophils % 6.7 H, Basophils % 0.7, Absolute Granulocytes 3.7, Absolute Lymphocytes 0.8 L, Absolute Monocytes 0.4, Absolute Eosinophils 0.4, Absolute Basophils 0, Urinalysis LIGHT H, Urine Color BLDY H, Urine Clarity CLDY H, Urine pH 5.5, Ur Specific [place] 1.025, Urine Protein 100 H, Urine Ketones TRACE H, Urine Nitrite POS H, Urine Bilirubin NEG@ICTO, Urine Urobilinogen 0.2, Ur Leukocyte Esterase TRACE H, Ur Microscopic SEDIMENT EXAMINED, Urine RBC PACKD H, Urine WBC 1-3 H, Ur Epithelial Cells RARE, Urine Crystals 1+ UR AC H, Urine Bacteria MOD H, Micro UA Comment MORE INFO: H, Urine Hemoglobin LARGE H, Urine Glucose NEG Microbiology 02/24 1133 URINE ROUT: Urine Culture - COMP Vital Signs Date Time Temp Pulse Resp B/P B/P Pulse O2 O2 Flow FiO2 Mean Ox Delivery Rate 02/26 0546 99.7 89 22 122/62 98 Room Air 02/25 2105 97.2 58 20 126/62 94 02/25 1445 97.8 53 18 130/82 95 Room Air Intake & Output 02/26 1600 02/26 0800 02/26 0000 Intake Total 390 Output Total 300 200 Balance -300 190 Intake, IV 150 Intake, Oral 240 Number 1 Bowel Movements Output, Urine 300 200
[2018-02-26 14:25] VITALS: BP 135/44
--- NOTE | 2018-02-26 17:50 | PN- Housestaff ---
Subjective Follow-up For: Gross hematurias Subjective: Seen and examined. Barely responsive and does not offer any complaints answers no to every question Dubon bag filled with grossly bloody urine Review of Systems Constitutional: Reports: see HPI. Objective Last 24 Hrs of Vital Signs/I&O Vital Signs Date Time Temp Pulse Resp B/P B/P Pulse O2 O2 Flow FiO2 Mean Ox Delivery Rate 02/26 1425 100.2 66 20 135/44 97 Room Air 02/26 0546 99.7 89 22 122/62 98 Room Air 02/25 2105 97.2 58 20 126/62 94 Intake & Output 02/26 1600 02/26 0800 02/26 0000 Intake Total 390 Output Total 350 300 200 Balance -350 -300 190 Intake, IV 150 Intake, Oral 240 Number 1 Bowel Movements Output, Urine 350 300 200 Physical Exam General Appearance: No Acute Distress Cardiovascular: Normal S1, Normal S2 Lungs: Clear to Auscultation Abdomen: Soft Current Medications: Current Medications Sig/Max Start time Last Medication Dose Route Stop Time Status Admin Acetaminophen 650 MG Q6P PRN 02/24 2215 AC PO Finasteride 5 MG DAILY 02/26 0900 AC 02/26 PO 0834 Insulin Aspart 0 TIDAC 02/25 1700 AC SC Patient Medication 1 ED ONE ONE 02/26 1145 DC Teaching ED 02/26 1146 Pravastatin Sodium 80 MG 1700 02/24 2230 AC 02/25 PO 1749 Last 24 Hrs of Lab/Ed Results Last 24 Hrs of Labs/Mics: Laboratory Tests 02/26/18 0745: CBC w Diff NO MAN DIFF REQ, RBC 4.43 L, MCV 85.7, MCH 28.5, MCHC 33.2, RDW 14.7 H, MPV 7.6, Gran % 88.3 H, Lymphocytes % 3.7 L, Monocytes % 6.8, Eosinophils % 0.9, Basophils % 0.3, Absolute Granulocytes 8.9 H, Absolute Lymphocytes 0.4 L, Absolute Monocytes 0.7 H, Absolute Eosinophils 0.1, Absolute Basophils 0 Assessment/Plan Assessment: The patient is 87-year-old male with PMH of [place] april 2017 status post stent followed by aortic valve replacement June 2017, right hemiparesis November 2017, sepsis of unknown origin status post long course of antibiotic, diabetes, hypertension, hyperlipidemia, vascular dementia. He was recently discharged from [facility] on January 19. The patient presented to [facility] with a complaint of hematuria. When his aide noticed blood in his diaper. No past medical history of hematuria The patient is admitted to general medicine floor. He is being treated evaluate for following conditions #Gross hematuria No history of hematuria in the past No recent instrumentation. Patient is incontinent at baseline -Cystoscopy demonstrated a positive for severe BPH with hypervascular prostate -Renal ultrasound was positive for enlarged bladder and enlarged prostate no hydronephrosis or nephrolithiasis -Proscar 5mg/day to help reduce prostate size, but primarily help decrease prostate bleeding. -Asprin and Plavix on hold -Will keep dubon catheter in place for now and talk to urology about CBI given persistent hematuria #CAD status post stent placement. 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 As per their recommendation. Asprin can be restarted after consulting with urology #History of diabetes mellitus -Metformin on hold -Accu-Cheks and insulin sliding scale #Patient's is concerned about patient's poor quality of life -Palliative consult placed to Dr. Hector meeting will take place 1:30 PM, to discuss golas of care and future hospitalization #History of hyperlipidemia continue statin #Nothing by mouth for now, Puree diet at baseline/ DVT prophylaxis with ALPS only/DNR/DNI Problem List: 1. Hematuria Pain Ratin Pain Location: jerel Pain Goal: Pain 4 or less Pain Plan: prn Tomorrow's Labs & Rationales: cbc
[2018-02-26 22:56] VITALS: BP 140/74
[2018-02-27 06:43] VITALS: BP 134/49
--- NOTE | 2018-02-27 07:32 | PN- Housestaff ---
Subjective Follow-up For: Gross hematuria Subjective: Patient seen and examined. Difficult to arouse does not appear to be in distress no overnight acute events. His Dubon is draining dark reddish colored urine without any clots. Review of Systems Constitutional: Reports: see HPI. Objective Last 24 Hrs of Vital Signs/I&O Vital Signs Date Time Temp Pulse Resp B/P B/P Pulse O2 O2 Flow FiO2 Mean Ox Delivery Rate 02/27 0849 68 20 95 Room Air 02/27 0643 98.9 56 18 134/49 95 Room Air 02/26 2256 99.4 72 20 140/74 94 Room Air 02/26 2000 99.6 02/26 1425 100.2 66 20 135/44 97 Room Air Intake & Output 02/27 1600 02/27 0800 02/27 0000 Intake Total 0 60 Output Total 200 250 Balance -200 -190 Intake, IV 0 10 Intake, Oral 0 50 Number 1 0 Bowel Movements Output, Urine 200 250 Physical Exam General Appearance: Alert, Oriented X3 Cardiovascular: Normal S1, Normal S2 Lungs: Clear to Auscultation, Normal Air Movement Abdomen: Normal Bowel Sounds, Soft Current Medications: Current Medications Sig/Max Start time Last Medication Dose Route Stop Time Status Admin Acetaminophen 650 MG Q6P PRN 02/24 2215 AC PO Dextrose/Sodium 1,000 ML Q20H 02/27 1100 AC 02/27 Chloride IV 1101 Finasteride 5 MG DAILY 02/26 0900 AC 02/27 PO 0801 Insulin Aspart 0 TIDAC 02/25 1700 AC SC Pravastatin Sodium 80 MG 1700 02/24 2230 AC 02/26 PO 1821 Last 24 Hrs of Lab/Ed Results Last 24 Hrs of Labs/Mics: Laboratory Tests 02/27/18 0625: CBC w Diff NO MAN DIFF REQ, RBC 3.81 L, MCV 84.0, MCH 28.7, MCHC 34.2, RDW 14.9 H, MPV 8.0, Gran % 81.5 H, Lymphocytes % 8.7 L, Monocytes % 8.9, Eosinophils % 0.6, Basophils % 0.3, Absolute Granulocytes 6.3, Absolute Lymphocytes 0.7 L, Absolute Monocytes 0.7 H, Absolute Eosinophils 0, Absolute Basophils 0 Assessment/Plan Assessment: The patient is 87-year-old male with PMH of [place] april 2017 status post stent followed by aortic valve replacement June 2017, right hemiparesis November 2017, sepsis of unknown origin status post long course of antibiotic, diabetes, hypertension, hyperlipidemia, vascular dementia. He was recently discharged from [facility] short-term rehab on January 19. The patient presented to [facility] with a complaint of hematuria. When his aide noticed blood in his diaper. No past medical history of hematuria The patient is admitted to general medicine floor. He is being treated evaluate for following conditions #Gross hematuria No history of hematuria in the past No recent instrumentation. Patient is incontinent at baseline -Cystoscopy demonstrated a positive for severe BPH with hypervascular prostate -Renal ultrasound was positive for enlarged bladder and enlarged prostate no hydronephrosis or nephrolithiasis -Proscar 5mg/day to help reduce prostate size, but primarily help decrease prostate bleeding. -Asprin and Plavix on hold -Will keep dubon catheter in place for now and continue manual flushing as per urology recommendations #CAD status post stent placement. 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 As per their recommendation. Asprin can be restarted after consulting with urology #History of diabetes mellitus -Metformin on hold -Accu-Cheks and insulin sliding scale #Palliative care? -Palliative care consult to delineate goals of care; as per his patient has poor quality of life. Family seems to be leaning towards hospice at home -Dr. Hector will see the pt and family today 1:30 PM, to discuss golas of care and future hospitalization -Patient's does not want blood sugar to be tested 3 times a day because she believes that patient grimaces every time it is done so we are going to reduce the finger sticks to once a day #Fever Spiking low-grade temp. MAXIMUM TEMPERATURE 100.2 AXILLARY. Patient does not have a white count. There is a possibility of aspiration as patient's episode of an episode of choking. Patient usually takes pured diet after the stroke. Poor oral intake -We will work up fever the family decides to pursue aggressive measures otherwise we will try to keep patient comfortable -We'll get a formal swallow evaluation #History of hyperlipidemia continue statin #Nothing by mouth for now/ DVT prophylaxis with ALPS only/DNR/DNI Problem List: 1. Hematuria Pain Ratin Pain Location: none Pain Goal: Pain 4 or less Pain Plan: prn Tomorrow's Labs & Rationales: cbc
[2018-02-27 08:35] LABS: ABSOLUTE BASOPHIL COUNT 0 /CUMM (0.0-0.2); ABSOLUTE EOSINOPHIL COUNT 0 /CUMM (0.0-0.7); ABSOLUTE GRANULOCYTE CT 6.3 /CUMM (1.4-6.5); ABSOLUTE LYMPH COUNT 0.7 /CUMM (1.2-3.4); ABSOLUTE MONOCYTE COUNT 0.7 /CUMM (0.10-0.60); BASOPHIL % 0.3 % (0.0-2.0); EOSINOPHIL % 0.6 % (0-5); GRANULOCYTE % 81.5 % (42.2-75.2); MEAN CORPUSCULAR HGB 28.7 PG (27.0-31.0); MEAN CORPUSCULAR HGB CONC 34.2 G/DL (33.0-37.0); PLATELET COUNT 273 /CUMM (130-400); RBC DISTRIBUTION WIDTH 14.9 % (11.5-14.5); RED BLOOD CELL CT 3.81 /CUMM (4.70-6.10); WHITE BLOOD CELL COUNT 7.7 /CUMM (4.8-10.8)
--- NOTE | 2018-02-27 12:07 | Cons- Palliative Care ---
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 He was seen by urologist, status post cystoscopy and fulguration, with ongoing hematuria. More importantly, his functional status has declined drastically since about a week to the point where he is barely arousable, not eating or drinking (pure thick) as he used to, and his family/ thinks his quality of life has significantly to repeated and continues to deteriorate. This is when palliative care consultation was requested. We spent almost an hour reviewing charts, speaking to nursing staff, hospice case manager, patient's , and his other family members including daughters and son-in-law, regarding his current medical and functional condition and about guarded prognosis. His clearly mentioned that the patient's wishes would be at this point, that he be placed in comfort measures only, and not go for aggressive measures, including even the smallest tests that could make him uncomfortable like fingerstick glucose. Of what we understand, patient has nursing care at home visiting twice a day, and the patient is taking care after by his for the night, but at this point of time it would be very difficult to continue the same level of deligence for the now increased requirement of care. Allergies/Medications Allergies: Coded Allergies: No Known Allergies (02/24/18) Home Med List: Aspirin (Aspirin*) 81 MG TAB.CHEW 81 MG PO DAILY HEART Clopidogrel Bisulfate (Clopidogrel) 75 MG TABLET 1 TAB PO DAILY BLOOD THINNER (Reported) Metformin HCl 500 MG TABLET 500 MG PO BID DIABETES (Reported) Pravastatin Sodium 80 MG TABLET 1 TAB PO DAILY CHOLESTEROL (Reported) Current Medications: Current Medications Sig/Max Start time Last Medication Dose Route Stop Time Status Admin Acetaminophen 650 MG Q6P PRN 02/24 7835 AC PO Dextrose/Sodium 1,000 ML Q20H 02/27 1100 AC 02/27 Chloride IV 1101 Finasteride 5 MG DAILY 02/26 0900 AC 02/27 PO 0801 Insulin Aspart 0 TIDAC 02/25 1700 AC SC Pravastatin Sodium 80 MG 1700 02/24 2230 AC 02/26 PO 1821 Review of Systems Review of Systems: Not obtainable given patient's clinical condition. 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 Psychosocial History Where Do You Live? Home Who Do You Live With? spouse Services at Home: Home Health Aide, Nursing Primary Language: Kosovan Smoking Status: Former Smoker Karnofsky Performance Scale: 10 Living Will? no Power of Geometrician/HCP? no ( lives with the patient) Functional Ability ADLs Needs Assist: dressing, eating, toileting, bathing. Ambulation: non-ambulatory IADLs Needs Assist: shopping, housework, finances, food prep, telephone, transportation, medication admin. 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 Exam & Diagnostic Data Last 24 Hrs of Vitals/I&Os: Vital Signs Date Time Temp Pulse Resp B/P B/P Pulse O2 O2 Flow FiO2 Mean Ox Delivery Rate 02/27 0849 68 20 95 Room Air 02/27 0643 98.9 56 18 134/49 95 Room Air 02/26 2256 99.4 72 20 140/74 94 Room Air 02/26 2000 99.6 02/26 1425 100.2 66 20 135/44 97 Room Air Intake & Output 02/27 1600 02/27 0800 02/27 0000 Intake Total 0 60 Output Total 200 250 Balance -200 -190 Intake, IV 0 10 Intake, Oral 0 50 Number 1 0 Bowel Movements Output, Urine 200 250 Physical Exam: gen- cachectic appearing individual, minimally responsive to verbal stimuli, does not appear to be in distress RS- clear breath sound anteriorly CVS- S1 S2 not in failure neuro- limited exam given his clinical condition Assessment/Plan Assessment Mr Salmeron is a 87-year-old gentleman with past medical history of triple-vessel coronary artery disease status post bare metal stent 2017, critical aortic stenosis status post TAVR 2017, hypertension, hyperlipidemia, diabetes mellitus, 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 Given his current clinical condition, it is our opinion that the patient would not survive without medical help if left to natural course of health. His rapidly declining clinical condition is quite evident, and his family is well aware of the condition. According to his , the patient would have wanted him to be on comfort measures only, and not pursue any aggressive management given his condition. Patient probably qualifies for hospice care, and hospice consultation is recommended. We had an extensive discussion with the family members, and recommend the patient for in-hospital or outside hospice level of care. * Pain management could be changed to morphine 5 mg sublingual 4 times a day scheduled and morphine 5 mg sublingual every 2 hours as needed * Discontinue ASA, Plavix, antidiabetic medications * No further testing, including fingerstick glucose checks * Hospice consultation for eventual disposition planning as well Thank you for the consult. Please call us if needed. Prognosis: grave Is Patient Decisional? no Case Discussed With: family, nurse(s), case management Goals of Care: comfort measures only, hospice eval Consult Acknowledgment - Thank you for your consult request. Attending MD Review Statement Attending Statement Attending MD Statement: examined this patient, discuss w/resident/PA/PRIVACY ATTORNEY, agreed w/resident/PA/PRIVACY ATTORNEY, discussed with family, reviewed EMR data (avail), discussed w/ nursing, discussed w/case mgmt, amended to note Attending Assessment/Plan: Patient examined along with Dr. Gonzalez and I concur with findings of a severely cachectic, elderly male in bed, immobile, in no acute distress at this time. He is minimally arousable. He demonstrates notable findings of bitemporal wasting, (R) UE amputation. Extensive family meeting held for over 1 hour which included patient's spouse, daughters, other family members, case management. They express understanding of patient's decline in function over the past year - and share that the patient's wishes would be to pursue comfort care at this point. Total time of consultation including medical record review, patient examination, family meeting, and interdisciplinary team meeting 1.5 hours
--- NOTE | 2018-02-27 13:18 | PN- Att Addend ---
Attending Addendum Attending Brief Note Patient seen and examined. Plan of care discussed with the medical team and the patient. Available lab work and radiology test reports were reviewed. Patient status post cystoscopy 2 days ago. Pt is sleep and does not wake up easily. noted some grimaces while sleeping. No recent fever chills nausea vomiting or chest pain reported. Patient's and other family members are at the bedside. His Cristobal is draining dark reddish colored urine without any clots. Temperature 100.2 was noted yesterday afternoon. Exam: General: Patient sleepy and difficult to arouse without any distress CVS: S1 plus S2 without any murmur or gallops Chest: Few scattered crepitation without any wheeze. There is no respiratory distress. Abdomen: Soft non-tender, bowel sound present, no guarding or rebound PHOTORADIO OPERATOR: Sleepy and lethargic and prefers to keep his eyes closed Extremities: No edema; no clubbing or cyanosis noted Assessment * Hematuria- persistent, patient status post cystoscopy which showed a large prostate * History of severe aortic stenosis status post valve replacement * History diabetes * History of stroke with left-sided residual hemiparesis * History of sepsis * History of dementia * History of NSTEMI * Low-grade temperature- given her recent cystoscopy patient risk for UTI Plan * Given persistent hematuria continue to hold aspirin and Plavix for now * Repeat CBC tomorrow * Keep Cristobal in for now and do manual flushing * Palliative care consult to delineate goals of care; as per his patient has poor quality of life. Family seems to be leaning towards hospice at home * Continue finasteride * Will only workup fever if decision is not to pursue hospice Current Medications Sig/Max Start time Last Medication Dose Route Stop Time Status Admin Acetaminophen 650 MG Q6P PRN 02/24 2215 AC PO Dextrose/Sodium 1,000 ML Q20H 02/27 1100 AC 02/27 Chloride IV 1101 Finasteride 5 MG DAILY 02/26 0900 AC 02/27 PO 0801 Insulin Aspart 0 TIDAC 02/25 1700 AC SC Pravastatin Sodium 80 [place] [address]002/24 2230 AC 02/26 PO 1821 Laboratory Tests 02/27/18 0625: CBC w Diff NO MAN DIFF REQ, RBC 3.81 L, MCV 84.0, MCH 28.7, MCHC 34.2, RDW 14.9 H, MPV 8.0, Gran % 81.5 H, Lymphocytes % 8.7 L, Monocytes % 8.9, Eosinophils % 0.6, Basophils % 0.3, Absolute Granulocytes 6.3, Absolute Lymphocytes 0.7 L, Absolute Monocytes 0.7 H, Absolute Eosinophils 0, Absolute Basophils 0 02/26/18 0745: CBC w Diff NO MAN DIFF REQ, RBC 4.43 L, MCV 85.7, MCH 28.5, MCHC 33.2, RDW 14.7 H, MPV 7.6, Gran % 88.3 H, Lymphocytes % 3.7 L, Monocytes % 6.8, Eosinophils % 0.9, Basophils % 0.3, Absolute Granulocytes 8.9 H, Absolute Lymphocytes 0.4 L, Absolute Monocytes 0.7 H, Absolute Eosinophils 0.1, Absolute Basophils 0 02/25/18 0720: Anion Gap 10, Estimated GFR > 60, BUN/Creatinine Ratio 23.6, CBC w Diff NO MAN DIFF REQ, RBC 4.26 L, MCV 86.1, MCH 28.9, MCHC 33.6, RDW 14.3, MPV 7.9, Gran % 72.5, Lymphocytes % 13.3 L, Monocytes % 8.4, Eosinophils % 5.3 H, Basophils % 0.5, Absolute Granulocytes 4.7, Absolute Lymphocytes 0.9 L, Absolute Monocytes 0.5, Absolute Eosinophils 0.3, Absolute Basophils 0 Vital Signs Date Time Temp Pulse Resp B/P B/P Pulse O2 O2 Flow FiO2 Mean Ox Delivery Rate 02/27 0849 68 20 95 Room Air 02/27 0643 98.9 56 18 134/49 95 Room Air 02/26 2256 99.4 72 20 140/74 94 Room Air 02/26 2000 99.6 02/26 1425 100.2 66 20 135/44 97 Room Air Intake & Output 02/27 1600 02/27 0800 02/27 0000 Intake Total 0 60 Output Total 200 250 Balance -200 -190 Intake, IV 0 10 Intake, Oral 0 50 Number 1 0 Bowel Movements Output, Urine 200 250
[2018-02-27 14:11] VITALS: BP 108/52
--- NOTE | 2018-02-27 16:06 | Discharge Summary ---
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 The patient was evaluated by urology Dr. Carnes for evaluation of gross hematuria and underwent cystoscopy which showed is severe BPH with hypervascular prostate. Renal ultrasound was positive for enlarged bladder and enlarged prostate no hydronephrosis or nephrolithiasis. Proscar was started 5mg/day to help reduce prostate size, but primarily help decrease prostate bleeding. Asprin and Plavix were Held in Setting of Ongoing Hematuria. More importantly, his functional status has declined drastically since about a week to the point where he is barely arousable, not eating or drinking (pure thick) as he used to, and his family/ thinks his quality of life has significantly deteriorated over that last year and especially over the last week. He has had 30lb weight loss over past 1 year. Palliative consultation with Dr. Hubert Hector today 02/27 led to family decision for hospice, as they felt this would be in keeping with patient's previously known wishes. Currently pt. is unresponsive but does grimace and at times moan when care is provided. He continues with hematuria and was febrile yesterday. We are not going to workup patient's fever. We are going to stop Accu-Cheks as per family' s wishes. The CODE STATUS has been changed to hospice care. And he is being discharged from our service. Allergies: Coded Allergies: No Known Allergies (02/24/18) Disposition Summary Disposition Principal Diagnosis: severe BPH with hypervascular prostate Additional Diagnosis: quality of life has significantly deteriorated Discharge Disposition: inpatient hospice Discharge Instructions General Discharge Information Code Status: Hospice Patient's Diet: as tolerated Patient's Activity: as tolerated Follow-Up Instructions/Appts: n/a Medications at Discharge Discharge Medications: Stop taking the following medications: Metformin HCl (Metformin HCl) 500 MG TABLET ORAL TWICE DAILY Qty = 180 Aspirin (Aspirin*) 81 MG TAB.CHEW ORAL DAILY Qty = 30 Clopidogrel Bisulfate (Clopidogrel) 75 MG TABLET ORAL DAILY Qty = 90 Pravastatin Sodium (Pravastatin Sodium) 80 MG TABLET ORAL DAILY Qty = 90 Cholecalciferol (Vitamin D3) 1,000 UNIT TABLET ORAL DAILY Copies To: Caity PICKERING,Aubrey Montoya; Bc Carnes MD; Tawny PICKERING,Hubert Alvarado
== END 2018-02-27 15:57 | disposition hospice, home (50) | DRG 713 ==
LOC: ERH 10:40 → ERHI 19:34 → 2NB 19:34 → ENRESERV 20:39 → ENTRNSPT 21:23 → EDTRNSPTSTS 21:41 → EDTRNSPT 21:41 → 2NB 21:46 → CMPTRNSPT 21:56 → 2NB 02-25 07:56 → ENTRNSPT 02-25 10:44 → EDTRNSPT 02-25 10:58 → EDTRNSPTSTS 02-25 10:58 → CMPTRNSPT 02-25 11:24 → 2NA 02-27 15:30
PROVIDERS: Internal Medicine; Student in an Organized Health Care Education/Training Program
PROC: 0V507ZZ Destruction of Prostate, Via Natural or Artificial Opening (ICD-10-PCS; principal; 2018-02-25)
DX: N40.1 Benign prostatic hyperplasia with lower urinary tract symptoms (principal); I69.354 Hemiplegia and hemiparesis following cerebral infarction affecting left non-dominant side; E11.8 Type 2 diabetes mellitus with unspecified complications; R31.0 Gross hematuria; F01.50 Vascular dementia, unspecified severity, without behavioral disturbance, psychotic disturbance, mood disturbance, and anxiety; I11.9 Hypertensive heart disease without heart failure; Z89.211 Acquired absence of right upper limb below elbow; Z79.84 Long term (current) use of oral hypoglycemic drugs; Z51.5 Encounter for palliative care; Z95.2 Presence of prosthetic heart valve; Z79.01 Long term (current) use of anticoagulants; E78.5 Hyperlipidemia, unspecified; I25.10 Atherosclerotic heart disease of native coronary artery without angina pectoris; I25.2 Old myocardial infarction; Z66 Do not resuscitate; Z98.61 Coronary angioplasty status; R31.9 Hematuria, unspecified
CPT/HCPCS: 2NBSP; 36592; 76775; 81001; 82436; 87086; 93005; 93010; J0696; J1815; J7042

== ENCOUNTER 2018-02-27 15:57 | Inpatient (IN) | payer OTHER ==
[~2018-02-27 15:57] MED LIST changes: +CLOPIDOGREL75 M1 PO; +PRAVASTATIN SOD80 M2 PO; +VITAMIN D31000 UNI2 PO
--- NOTE | 2018-02-27 16:29 | History & Physical ---
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 He was seen by urologist this admission and is status post cystoscopy which showed severe BPH with hypervascular prostate. More importantly, his functional status has declined drastically since about a week to the point where he is barely arousable, not eating or drinking (pure thick) as he used to, and his family/ thinks his quality of life has significantly deteriorated over that last year and especially over the last week. He has had 30lb weight loss over past 1 year. Palliative consultation today led to family decision for hospice, as they felt this would be in keeping with patient's previously known wishes. Currently pt. is unresponsive but does grimace and at times moan when care is provided. He continues with hematuria and was febrile yesterday. 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 Exam & Diagnostic Data Last 24 Hrs of Vital Signs/I&O T-99.1; HR-49; RR-18; BP-108/52 O2 sat 95% RA Physical Exam General Appearance Mild Distress (with care), otherwise unresponsive Skin warm and dry HEENT Atraumatic, oral mucosa dry Cardiovascular Regular Rate, Normal S1, Normal S2, No Murmurs Lungs Clear to Auscultation, unlabored Abdomen Soft, No Masses, scaphoid Neurological unresponsive to verbal or tactile stimuli Extremities No Edema, right UE amputation below elbow Reproductive (MALE) dubon catheter with hematuria Last 24 Hrs of Labs/Ed: 02/27/18: CBC with WBC 7.7, H/H 10.9/32 Chem with Bun-26, Cr-1.1 Diagnostic Data Other Results 02/25/18: Renal US: IMPRESSION: No hydronephrosis. 5 mm nonobstructive left renal calculus. Enlarged urinary bladder. Limited evaluation of the urinary bladder as there is a Dubon catheter in place. 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 Plan: Start morphine 2 mg IV every 2 hrs as needed for pain/dyspnea Ativan 0.5mg IV every 4 hrs as needed for anxiety Scopolamine and Robinul as needed for secretions
[2018-02-28 06:31] VITALS: BP 134/68
--- NOTE | 2018-02-28 14:24 | PN- Hospice ---
Subjective Subjective: Family is at bedside. Pt. appears comfortable, resting with eyes closed. Awakens to verbal stimuli and denies pain. Received morphine once yesterday evening, no ativan. Much more alert and conversant than yesterday. Declines any suggestion of oral intake. Review of Systems Constitutional: Reports: see HPI. Objective Last 24 Hrs of Vital Signs/I&O Vital Signs Date Time Temp Pulse Resp B/P B/P Pulse O2 O2 Flow FiO2 Mean Ox Delivery Rate 02/28 0631 98.2 50 18 134/68 96 Room Air Intake & Output 02/28 1600 02/28 0800 02/28 0000 Intake Total 0 Output Total 100 150 300 Balance -100 -150 -300 Intake, Oral 0 Number 0 Bowel Movements Output, Urine 100 150 300 Physical Exam General Appearance: awake, comfortable Head: atraumatic Ears, Nose, Throat: very dry oral mucosa Respiratory: no respiratory distress, quiet respiration, lungs clear Cardiovascular: regular rate/rhythm (no murmur) Abdomen: soft, non-tender, scaphoid Extremities: no edema Other Physical Findings: Cristobal catheter with dark brown/red urine Current Medications: Current Medications Sig/Max Start time Last Medication Dose Route Stop Time Status Admin Acetaminophen 650 MG Q4P PRN 02/27 1615 AC OK Bisacodyl 10 MG DAILY NEEDED PRN 02/27 1615 AC OK Glycerin/Mineral Oil 1 DNENIS Q8P PRN 02/27 1615 AC TOP Glycopyrrolate 400 MCG Q4P PRN 02/27 1615 AC IV Lorazepam 0.5 MG Q4P PRN 02/27 1615 AC IV Morphine Sulfate 2 MG Q2P PRN 02/27 1615 AC 02/27 IV 1814 Scopolamine HBr 1 PAT Q72 PRN 02/27 1630 TOP Assessment/Plan Hospice Assessment/Recommendations: 87y.o. 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 Comfortable. Continue as needed medicines. Will add glycerin oral spray for xerostomia now that he is more alert. Problem List: 1. Hematuria 2. Cachexia 3. Vascular dementia of acute onset without behavioral disturbance 4. Hospice care
[2018-03-01 05:58] VITALS: BP 132/54
--- NOTE | 2018-03-01 11:43 | PN- Att Addend ---
Attending Addendum Attending Brief Note Patient seen and examined. Plan of care discussed with the medical team and the patient. Available lab work and radiology test reports were reviewed. Patient more awake. is at bedside. is concerned about Robaxin the right ear which she thought was blood. Patient otherwise appears well and does not appear to be in any distress. Exam: General: Patient awake alert oriented without any distress CVS: S1 plus S2 without any murmur or gallops Chest: Few scattered crepitation without any wheeze. There is no respiratory distress. 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, * vascular dementia, * hematuria related to hypervascular, enlarged prostate * anorexia and cachexia Plan * Continue current management * Patient overall is comfortable Current Medications Sig/Max Start time Last Medication Dose Route Stop Time Status Admin Acetaminophen 650 MG Q4P PRN 02/27 1615 AC MA Bisacodyl 10 MG DAILY NEEDED PRN 02/27 1615 AC MA Glycerin 2 SPRAY Q2P PRN 02/28 1515 AC PO Glycerin/Mineral Oil 1 DENNIS Q8P PRN 02/27 1615 AC TOP Glycopyrrolate 400 MCG Q4P PRN 02/27 1615 AC IV Lorazepam 0.5 MG Q4P PRN 02/27 1615 AC IV Morphine Sulfate 2 MG Q2P PRN 02/27 1615 AC 02/27 IV 1814 Scopolamine HBr 1 PAT Q72 PRN 02/27 1630 AC TOP Vital Signs Date Time Temp Pulse Resp B/P B/P Pulse O2 O2 Flow FiO2 Mean Ox Delivery Rate 03/01 0558 97.6 53 20 132/54 95 Room Air Intake & Output 03/01 1600 03/01 0800 03/01 0000 Intake Total 120 240 Output Total 350 250 Balance -230 -10 Intake, Oral 120 240 Number 1 Bowel Movements Output, Urine 350 250
[2018-03-01 14:15] VITALS: BP 110/85
[2018-03-02 07:00] VITALS: BP 108/76
--- NOTE | 2018-03-02 12:40 | PN- Att Addend ---
Attending Addendum Attending Brief Note Patient seen and examined. Plan of care discussed with the medical team and the patient. Available lab work and radiology test reports were reviewed. Patient is sleepy this morning. is at bedside. Patient otherwise appears well and does not appear to be in any distress. He is arousable and able to answer questions. Exam: General: Patient is sleepy but arousable without any distress CVS: S1 plus S2 without any murmur or gallops Chest: Few scattered crepitation without any wheeze. There is no respiratory distress. 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 Given patient's stability he may be candidate to go home with hospice on Saturday Current Medications Sig/Max Start time Last Medication Dose Route Stop Time Status Admin Acetaminophen 650 MG Q4P PRN 02/27 1615 AC GA Bisacodyl 10 MG DAILY NEEDED PRN 02/27 1615 AC GA Glycerin 2 SPRAY Q2P PRN 02/28 1515 AC PO Glycerin/Mineral Oil 1 DENNIS Q8P PRN 02/27 1615 AC TOP Glycopyrrolate 400 MCG Q4P PRN 02/27 1615 AC IV Lorazepam 0.5 MG Q4P PRN 02/27 1615 AC IV Morphine Sulfate 2 MG Q2P PRN 02/27 1615 AC 03/01 IV 1745 Scopolamine HBr 1 PAT Q72 PRN 02/27 1630 AC TOP Vital Signs Date Time Temp Pulse Resp B/P B/P Pulse O2 O2 Flow FiO2 Mean Ox Delivery Rate 03/02 0700 97.5 52 20 108/76 97 Room Air 03/01 1415 98.3 64 20 110/85 95 Room Air Intake & Output 03/02 1600 03/02 0800 03/02 0000 Intake Total Output Total 200 Balance -200 Number 0 0 Bowel Movements Output, Urine 200
[2018-03-02 14:29] VITALS: BP 100/60
[2018-03-03 06:03] VITALS: BP 100/60
--- NOTE | 2018-03-03 11:41 | PN- Att Addend ---
Attending Addendum Attending Brief Note Patient seen and examined. Plan of care discussed with the medical team and the patient. Available lab work and radiology test reports were reviewed. Patient is sleepy this morning. is at bedside. As per patient woke up briefly yesterday afternoon but otherwise has been mostly sleeping. His by mouth intake has been decreasing. Patient otherwise appears well and does not appear to be in any distress. He is barely arousable today. Exam: General: Patient is sleepy not arousable but appears without any distress CVS: S1 plus S2 without any murmur or gallops Chest: Few scattered crepitation without any wheeze. There is no respiratory distress. 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 He may be a candidate to stay in hospital Vital Signs Date Time Temp Pulse Resp B/P B/P Pulse O2 O2 Flow FiO2 Mean Ox Delivery Rate 03/03 0603 97.5 53 20 100/60 97 Room Air 03/02 1429 97.9 50 16 100/60 95 Room Air Intake & Output 03/03 1600 03/03 0800 03/03 0000 Intake Total 0 80 Output Total 175 Balance -175 80 Intake, Oral 0 80 Number 1 Bowel Movements Output, Urine 175
--- NOTE | 2018-03-03 14:51 | Event Note ---
Event Note Event Note: Family requested pureed diet for patient. They are aware of risks of aspiration , and believe this will provide comfort to patient. Pureed diet ordered.
[2018-03-03 15:04] VITALS: BP 110/72
[2018-03-04 07:13] VITALS: BP 108/68
--- NOTE | 2018-03-04 11:49 | PN- Hospice ---
Subjective Subjective: Pt. appears comfortable, lethargic but able to nod yes/no. Reports being comfortable at this time. Was more responsive earlier according to staff. at bedside, tearful at change in status. Pt had very good day this weekend, alert and talkative/joking with family, eating. Last received morphine yesterday, no ativan. Review of Systems Constitutional: Reports: see HPI. Objective Last 24 Hrs of Vital Signs/I&O Vital Signs Date Time Temp Pulse Resp B/P B/P Pulse O2 O2 Flow FiO2 Mean Ox Delivery Rate 03/04 0713 97.6 54 16 108/68 98 Room Air 03/03 1825 97.7 03/03 1504 97.8 51 18 110/72 98 Room Air Intake & Output 03/04 1600 03/04 0800 03/04 0000 Intake Total 120 240 Output Total 200 200 Balance -80 40 Intake, Oral 120 240 Output, Urine 200 200 Physical Exam General Appearance: no apparent distress, lethargic Head: atraumatic Ears, Nose, Throat: dry mucus membranes Respiratory: no respiratory distress, quiet respiration Cardiovascular: regular rate/rhythm Abdomen: soft, non-tender Extremities: bilat. feet cool with slight mottling noted Other Physical Findings: dubon catheter with hematuria Current Medications: Current Medications Sig/Max Start time Last Medication Dose Route Stop Time Status Admin Acetaminophen 650 MG Q4P PRN 02/27 1615 AC [place] Bisacodyl 10 MG DAILY NEEDED PRN 02/27 1615 AC [place] Glycerin 2 SPRAY Q2P PRN 02/28 1515 AC PO Glycerin/Mineral Oil 1 DENNIS Q8P PRN 02/27 1615 AC 03/03 TOP 2103 Glycopyrrolate 400 MCG Q4P PRN 02/27 1615 AC IV Lorazepam 0.5 MG Q4P PRN 02/27 1615 AC IV Morphine Sulfate 2 MG Q2P PRN 02/27 1615 AC 03/03 IV 1820 Scopolamine HBr 1 PAT Q72 PRN 02/27 1630 TOP Assessment/Plan Hospice Assessment/Recommendations: 87y.o. 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 Comfortable. Continue as needed medications, support to family. Problem List: 1. Hematuria 2. Vascular dementia of acute onset without behavioral disturbance 3. Cachexia 4. Hospice care
[2018-03-05 06:34] VITALS: BP 124/54
--- NOTE | 2018-03-05 15:58 | PN- Hospice ---
Subjective Subjective: at bedside. Pt. at 100% breakfast this am. Did receive morphine x 1 today for discomfort with good effect. appears comfortable now, sleepy. Review of Systems Constitutional: Reports: see HPI. Objective Last 24 Hrs of Vital Signs/I&O Vital Signs Date Time Temp Pulse Resp B/P B/P Pulse O2 O2 Flow FiO2 Mean Ox Delivery Rate 03/05 0634 97.7 67 16 124/54 92 Room Air Intake & Output 03/05 1600 03/05 0800 03/05 0000 Intake Total 330 120 Output Total 125 225 150 Balance 205 -105 -150 Intake, Oral 330 120 Number 1 Bowel Movements Output, Urine 125 225 150 Physical Exam General Appearance: no apparent distress, sedated Head: normal appearance Respiratory: no respiratory distress, decreased breath sounds Cardiovascular: regular rate/rhythm Abdomen: soft, non-tender Extremities: no edema, slight mottling noted to feet Other Physical Findings: dubon with pink tinged urine Assessment/Plan Hospice Assessment/Recommendations: 87y.o. 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 Comfortable. Continue as needed medications, support to family. Problem List: 1. Hematuria 2. Cachexia 3. Vascular dementia of acute onset without behavioral disturbance 4. Hospice care
[2018-03-06 07:02] VITALS: BP 114/58
[2018-03-06 14:12] VITALS: BP 114/58
[2018-03-06] MEDS ORDERED: TRANSDERM-SCOP1 EAC1 TOP (14:41)
[2018-03-06] MEDS ORDERED: ROBINUL0.2 MG/1 M SC (14:41)
--- NOTE | 2018-03-06 15:00 | PN- Att Addend ---
Attending Addendum Attending Brief Note Patient seen and examined. No issues overnight reported by nursing staff. Remains afebrile and hemodynamically stable. Patient is resting comfortably. present at the bedside. She is reluctant to have the patient continue to receive morphine. I did explain to her that it is required to ensure that he is not in any distress. She did verbalize understanding. He has not required Ativan or any other anxiolytic medications. Vital Signs Date Time Temp Pulse Resp B/P B/P Pulse O2 O2 Flow FiO2 Mean Ox Delivery Rate 03/06 1412 97.6 54 16 114/58 03/06 0702 97.6 54 16 114/58 92 Room Air General appearance: Not in acute distress. Heart: S1-S2 Lungs: Clear to auscultation Abdomen: Soft and nontender Extremities: No pedal edema Due to the paucity of symptoms being managed here the hospice service has recommended transferring the patient to [facility] for further hospice care. His is in agreement with this. Patient will be transferred to [facility] later on today.
== END 2018-03-06 15:01 | disposition hospice, home (50) | DRG 726 ==
LOC: 2NA 15:57 → ENPENDDIS 03-06 14:03 → 2NA 03-06 15:01
DX: N40.1 Benign prostatic hyperplasia with lower urinary tract symptoms (principal); R64 Cachexia; Z51.5 Encounter for palliative care; I69.354 Hemiplegia and hemiparesis following cerebral infarction affecting left non-dominant side; R31.9 Hematuria, unspecified; E11.9 Type 2 diabetes mellitus without complications; R63.0 Anorexia; F01.50 Vascular dementia, unspecified severity, without behavioral disturbance, psychotic disturbance, mood disturbance, and anxiety; I25.10 Atherosclerotic heart disease of native coronary artery without angina pectoris; Z95.2 Presence of prosthetic heart valve; I10 Essential (primary) hypertension; E78.5 Hyperlipidemia, unspecified; R32 Unspecified urinary incontinence; Z85.820 Personal history of malignant melanoma of skin; Z89.211 Acquired absence of right upper limb below elbow